=== PATIENT | male | born 1990 | race Caucasian/White ===

== ENCOUNTER 2016-11-20 09:12 | Inpatient (IN) | payer MEDICARE, OTHER ==
[2016-11-20 10:11] VITALS: BMI 24.3
--- NOTE | 2016-11-20 12:48 | HP ---
COWS - Scale Resting Pulse: 0= [place] 80 or Below Sweatin= Chills/Flushing Restless Observation: 3= Extraneous Movement Pupil Size: 0= Normal to Room Light Bone or Joint Aches: 4=Acute Joint/Muscle Pain Runny Nose/ Eye Tearin= Runny Nose/Eyes GI Upset > 30mins: 1= Stomach Cramp Tremor Observation: 1= Tremor [place], Not Seen Yawning Observation: 1= 1-2x During Session Anxiety or Irritability: 2=Irritable/Anxious Goose Flesh Skin: 0=Smooth Skin COWS Score: 15 Admission ROS S - HPI Chief Complaint: DETOX TX FOR HEROIN DEPENDENCE Allergies/Adverse Reactions: Allergies Allergy/AdvReac Type Severity Reaction Status Date / Time No Known Allergies Allergy Verified 11/20/16 11:49 History of Present Illness: 26 Y/O H/M WITH A HX HEROIN DEPENDENCE SEEKING DETOX [place] Exam Limitations: No Limitations - Ebola screening Have you traveled outside of the country in the last 21 days: No Have you had contact with anyone from an Ebola affected area: No Have you been sick,other than usual withdrawal symptoms: No - Review of Systems Constitutional: Chills, Loss of Appetite, Night Sweats, Changes in sleep, Unintentional Wgt. Loss EENT: reports: Nose Congestion, Dental Problems (MISSING TEETH) Respiratory: reports: No Symptoms reported Cardiac: reports: Lightheadedness GI: reports: Poor Appetite, Poor Fluid Intake : reports: No Symptoms Reported Musculoskeletal: reports: Back Pain, Joint Pain, Muscle Pain Integumentary: reports: No Symptoms Reported Neuro: reports: Dizziness Endocrine: reports: No Symptoms Reported Hematology: reports: No Symptoms Reported Psychiatric: reports: Orientated x3, Anxious Other Systems: Reviewed and Negative Patient History - Patient Medical History Hx Anemia: No Hx Asthma: No Hx Chronic Obstructive Pulmonary Disease (COPD): No Hx Cardiac Disorders: No Hx Hypertension: No Hx Hypercholesterolemia: No HX Cerebrovascular Accident: No Hx Seizures: No Hx Diabetes: No Hx Gastrointestinal Disorders: No Hx Genitourinary Disorders: No Hx Sexually Transmitted Disorders: No Hx Renal Disease (ESRD): No Hx Thyroid Disease: No Hx Human Immunodeficiency Virus (HIV): No (NEGATIVE HX) Hx Hepatitis C: No Hx Depression: No Hx Suicide Attempt: No Hx Bipolar Disorder: No Hx Schizophrenia: No - Patient Surgical History Past Surgical History: No Hx Neurologic Surgery: No Hx Cataract Extraction: No Hx Cardiac Surgery: No Hx Lung Surgery: No Hx Breast Surgery: No Hx Breast Biopsy: No Hx Abdominal Surgery: No Hx Appendectomy: No Hx Cholecystectomy: No Hx Genitourinary Surgery: No Hx Orthopedic Surgery: No Anesthesia Reaction: No - PPD History Previous Implant?: No (NEVER TESTED) Implanted On Prior [facility] Admission?: No PPD to be Administered?: Yes - Reproductive History Patient is a Female of Child Bearing Age (11 -55 yrs old): No (MALE) Patient : No (N/A) - Smoking Cessation Smoking history: Current every day smoker Have you smoked in the past 12 months: Yes Aproximately how many cigarettes per day: 10 Hx Chewing Tobacco Use: No Initiated information on smoking cessation: Yes 'Breaking Loose' booklet given: 11/20/16 - Substance & Tx. History Hx Alcohol Use: No (DENIES) Hx Substance Use: Yes (HEROIN) - Substances Abused Heroin Route: Inhalation Frequency: Daily Amount used: 14 bags Age of first use: 8 Date of Last Use: 11/19/16 Family Disease History - Family Disease History Family Disease History: Diabetes: Grandparent Other Family History: FAMILY HX HTN AND DM Admission Physical Exam S - Vital Signs Vital Signs: Vital Signs - 24 hr 11/20/16 10:09 Temperature 98.0 F Pulse Rate 80 Respiratory 18 Rate Blood Pressure 140/80 - Physical General Appearance: Yes: Appropriately Dressed, Moderate Distress, Irritable, Anxious HEENTM: Yes: EOMI, Normocephalic, [place]IL[place], Pharynx Normal, Nasal Congestion, Rhinorrhea Respiratory: Yes: Chest Non-Tender, Lungs Clear, Normal Breath Sounds, No Respiratory Distress Neck: Yes: Supple, Trachea in good position Breast: Yes: Breast Exam Deferred Cardiology: Yes: Regular Rhythm, Regular Rate, S1, S2 Abdominal: Yes: Normal Bowel Sounds, Non Tender, Flat, Soft Genitourinary: Yes: Other (N/A) Back: Yes: Within Normal Limits Musculoskeletal: Yes: full range of Motion, Gait Steady Extremities: Yes: Normal Range of Motion, Non-Tender Neurological: Yes: nutrition services assistant II-XII NML intact, Fully Oriented, Alert Integumentary: Yes: Dry, Warm Lymphatic: Yes: Within Normal Limits - Diagnostic (1) Opioid dependence with withdrawal Current Visit: Yes Status: Acute Cleared for Admission [facility] - Detox or Rehab [facility] Level of Care: Medically Managed Detox Regimen/Protocol: Methadone [facility] Breath Alcohol Content Breath Alcohol Content: 0 Urine Drug Screen - Results Drug Screen Negative: No Urine Drug Screen Results: OPI-Opiates, BZO-Benzodiazepines
[2016-11-20] MEDS ORDERED: ACETAMINOPHEN 325 MG TABLET (FP) PO PRN (14:48)
[2016-11-20] MEDS ORDERED: NICOTINE POLACRILEX 2 MG GUM BC PRN (14:48)
[2016-11-20] MEDS ORDERED: MAGNESIUM HYDROX 2400MG/30ML ORAL SUSPENSION 30 ML CUP PO PRN (14:48)
[2016-11-20] MEDS ORDERED: MENTHOL/PHENOL 1 EACH UD MM PRN (14:48)
[2016-11-20] MEDS ORDERED: guaiFENesin/D-METHORPHAN HB 10 ML UNIT-DOSE CUPS PO PRN (14:48)
[2016-11-20] MEDS ORDERED: MAG HYDROX/AL HYDROX/SIMETH 30 ML UNIT-DOSE CUP PO PRN (14:48)
[2016-11-20] MEDS ORDERED: LOPERAMIDE HCL 2 MG CAPSULE PO PRN (14:48)
[2016-11-20] MEDS ORDERED: MAGNESIUM CITRATE 300 ML BOTTLE PO PRN (14:48)
[2016-11-20] MEDS ORDERED: IBUPROFEN 400 MG TABLET (FP) PO PRN (14:48)
[2016-11-20] MEDS ORDERED: P-EPHED 60MG/TRIPROLIDI 2.5MG TABLET PO PRN (14:48)
[2016-11-20] MEDS ORDERED: METHADONE HCL 10 MG TABLET (FOR DETOX USE ONLY) PO ONE ×2 (15:15→23:00)
[2016-11-20 15:25] LABS: HIV 1 & 2 AB NEGATIVE; HIV 1 AGp24 NEGATIVE
[2016-11-20] MEDS: diazePAM 5 MG TABLET PO PRN (15:33)
[2016-11-20] MEDS: NICOTINE 14 MG/24 HOURS TOPICAL PATCH TD SCH (15:37)
--- NOTE | 2016-11-20 17:19 | EKG ---
Test Reason : Blood Pressure : / mmHG Vent. Rate : 063 BPM Atrial Rate : 063 BPM P-R Int : 168 ms QRS Dur : 082 ms QT Int : 404 ms P-R-T Axes : -03 063 030 degrees QTc Int : 413 ms NORMAL SINUS RHYTHM NORMAL ECG NO PREVIOUS ECGS AVAILABLE Confirmed by JOYCE CHERY MD ([id number]) on 11/20/2016 5:19:07 PM Referred By: Confirmed By:JOYCE CHERY MD
[2016-11-20 20:54] LABS: MCH 30.3 pg (25.7-33.7); MCHC 33.5 g/dl (32.0-35.9); MEAN CELL VOLUME 90.2 fl (80-96); PLATELET COUNT 270 K/MM3 (134-434); RDW 13.2 % (11.9-15.9); WHITE BLOOD COUNT 6.8 K/mm3 (4.0-10.0)
[2016-11-20 21:02] LABS: ALBUMIN 4.5 g/dl (3.4-5.0); ANION GAP 8 (8-16); CALCIUM 9.8 mg/dL (8.5-10.1); CO2 30 mmol/L (21-32); GLUCOSE,RANDOM 111 mg/dL (74-106)
[2016-11-20 21:06] LABS: ALK PHOS 53 U/L (45-117); BILIRUBIN,TOTAL 0.6 mg/dL (0.2-1.0); CREATININE 1.2 mg/dL (0.7-1.3); SGOT/AST 14 U/L (15-37); SGPT/ALT 23 U/L (12-78); TOT PROT 8.1 g/dl (6.4-8.2)
[2016-11-20 21:12] LABS: URINE APPEARANCE CLEAR; URINE BILIRUBIN NEGATIVE (NEGATIVE); URINE BLOOD NEGATIVE (NEGATIVE); URINE COLOR YELLOW; URINE GLUCOSE (UA) NEGATIVE (NEGATIVE); URINE KETONE NEGATIVE (NEGATIVE); URINE LEUK ESTERASE NEGATIVE (NEGATIVE); URINE NITRITE NEGATIVE (NEGATIVE); URINE PROTEIN NEGATIVE (NEGATIVE); URINE UROBILINOGEN NEGATIVE mg/dL (0.2-1.0)
[2016-11-20] MEDS: THIAMINE HCL 100 MG TABLET (FP) PO SCH (22:12)
[2016-11-20] MEDS: diphenhydrAMINE HCL 50 MG CAPSULE PO PRN (22:12)
[2016-11-20 22:22] LABS: SICKLE CELL SCREEN NEGATIVE (NEGATIVE)
[2016-11-21] MEDS ORDERED: METHADONE HCL 10 MG TABLET (FOR DETOX USE ONLY) PO ONE (10:00)
[2016-11-21] MEDS: PRENATAL VITAMINS W/ FOLIC ACID TABLET (FP) PO SCH (10:19)
[2016-11-21] MEDS: NICOTINE 14 MG/24 HOURS TOPICAL PATCH TD SCH (10:20)
--- NOTE | 2016-11-21 10:58 | PN ---
[facility] COWS - Scale Resting Pulse: 0= [place] 80 or Below Sweatin= Chills/Flushing Restless Observation: 3= Extraneous Movement Pupil Size: 2= Moderately Dilated Bone or Joint Aches: 4=Acute Joint/Muscle Pain Runny Nose/ Eye Tearin= Nasal Congestion GI Upset > 30mins: 1= Stomach Cramp Tremor Observation of Outstretched Hands: 1= Tremor [place], Not Seen Yawning Observation: 1= 1-2x During Session Anxiety or Irritability: 1=Feels Anxious/Irritable Goose Flesh Skin: 0=Smooth Skin COWS Score: 15 S Progress Note (SOAP) Subjective: ANXIETY,CHILLS,FATIGUE. Objective: 11/21/16 10:57 Vital Signs Temperature 97.2 F L 11/21/16 09:33 Pulse Rate 55 L 11/21/16 09:33 Respiratory Rate 18 11/21/16 09:33 Blood Pressure 117/73 11/21/16 09:33 O2 Sat by Pulse Oximetry (%) Laboratory Last Values WBC 6.8 K/mm3 (4.0-10.0) 11/20/16 11:00 RBC 5.00 M/mm3 (4.00-5.60) 11/20/16 11:00 Hgb 15.1 GM/dL (11.7-16.9) 11/20/16 11:00 Hct 45.1 % (35.4-49) 11/20/16 11:00 MCV 90.2 fl (80-96) 11/20/16 11:00 MCH 30.3 pg (25.7-33.7) 11/20/16 11:00 MCHC 33.5 g/dl (32.0-35.9) 11/20/16 11:00 RDW 13.2 % (11.9-15.9) 11/20/16 11:00 Plt Count 270 K/MM3 (134-434) 11/20/16 11:00 MPV 9.0 fl (7.5-11.1) 11/20/16 11:00 Sickle Cell Screen Negative (NEGATIVE) 11/20/16 11:00 Sodium 140 mmol/L (136-145) 11/20/16 11:00 Potassium 4.3 mmol/L (3.5-5.1) 11/20/16 11:00 Chloride 102 mmol/L (98-107) 11/20/16 11:00 Carbon Dioxide 30 mmol/L (21-32) 11/20/16 11:00 Anion Gap 8 (8-16) 11/20/16 11:00 BUN 15 mg/dL (7-18) 11/20/16 11:00 Creatinine 1.2 mg/dL (0.7-1.3) 11/20/16 11:00 Creat Clearance w eGFR > 60 (>60) 11/20/16 11:00 Random Glucose 111 mg/dL (74-106) H 11/20/16 11:00 Calcium 9.8 mg/dL (8.5-10.1) 11/20/16 11:00 Total Bilirubin 0.6 mg/dL (0.2-1.0) 11/20/16 11:00 AST 14 U/L (15-37) L 11/20/16 11:00 ALT 23 U/L (12-78) 11/20/16 11:00 Alkaline Phosphatase 53 U/L (45-117) 11/20/16 11:00 Total Protein 8.1 g/dl (6.4-8.2) 11/20/16 11:00 Albumin 4.5 g/dl (3.4-5.0) 11/20/16 11:00 Urine Color Yellow 11/20/16 20:00 Urine Appearance Clear 11/20/16 20:00 Urine pH 5.0 (5.0-8.0) 11/20/16 20:00 Ur Specific [place] 1.025 (1.005-1.025) 11/20/16 20:00 Urine Protein Negative (NEGATIVE) 11/20/16 20:00 Urine Glucose (UA) Negative (NEGATIVE) 11/20/16 20:00 Urine Ketones Negative (NEGATIVE) 11/20/16 20:00 Urine Blood Negative (NEGATIVE) 11/20/16 20:00 Urine Nitrite Negative (NEGATIVE) 11/20/16 20:00 Urine Bilirubin Negative (NEGATIVE) 11/20/16 20:00 Urine Urobilinogen Negative mg/dL (0.2-1.0) 11/20/16 20:00 Ur Leukocyte Esterase Negative (NEGATIVE) 11/20/16 20:00 HIV 1&2 Antibody Screen Negative 11/20/16 11:00 HIV P24 Antigen Negative 11/20/16 11:00 Assessment: 11/21/16 10:57 WITHDRAWAL SX Plan: CONTINUE DETOX
[2016-11-21] MEDS: THIAMINE HCL 100 MG TABLET (FP) PO SCH (22:26)
[2016-11-21] MEDS: diphenhydrAMINE HCL 50 MG CAPSULE PO PRN (22:27)
[2016-11-22] MEDS: diazePAM 5 MG TABLET PO PRN ×5 (06:00→22:27)
[2016-11-22] MEDS ORDERED: METHADONE HCL 5 MG TABLET (FOR DETOX USE ONLY) PO ONE (10:00)
--- NOTE | 2016-11-22 10:10 | PN ---
S COWS - Scale Resting Pulse: 0= [place] 80 or Below Sweatin= Chills/Flushing Restless Observation: 3= Extraneous Movement Pupil Size: 2= Moderately Dilated Bone or Joint Aches: 4=Acute Joint/Muscle Pain Runny Nose/ Eye Tearin= Nasal Congestion GI Upset > 30mins: 1= Stomach Cramp Tremor Observation of Outstretched Hands: 1= Tremor [place], Not Seen Yawning Observation: 1= 1-2x During Session Anxiety or Irritability: 2=Irritable/Anxious Goose Flesh Skin: 0=Smooth Skin COWS Score: 16 S Progress Note (SOAP) Subjective: ANXIETY,SWEATS,CHILLS. Objective: 11/22/16 10:10 Vital Signs Temperature 97.9 F 11/22/16 09:27 Pulse Rate 61 11/22/16 09:27 Respiratory Rate 18 11/22/16 09:27 Blood Pressure 117/70 11/22/16 09:27 O2 Sat by Pulse Oximetry (%) Laboratory Last Values WBC 6.8 K/mm3 (4.0-10.0) 11/20/16 11:00 RBC 5.00 M/mm3 (4.00-5.60) 11/20/16 11:00 Hgb 15.1 GM/dL (11.7-16.9) 11/20/16 11:00 Hct 45.1 % (35.4-49) 11/20/16 11:00 MCV 90.2 fl (80-96) 11/20/16 11:00 MCH 30.3 pg (25.7-33.7) 11/20/16 11:00 MCHC 33.5 g/dl (32.0-35.9) 11/20/16 11:00 RDW 13.2 % (11.9-15.9) 11/20/16 11:00 Plt Count 270 K/MM3 (134-434) 11/20/16 11:00 MPV 9.0 fl (7.5-11.1) 11/20/16 11:00 Sickle Cell Screen Negative (NEGATIVE) 11/20/16 11:00 Sodium 140 mmol/L (136-145) 11/20/16 11:00 Potassium 4.3 mmol/L (3.5-5.1) 11/20/16 11:00 Chloride 102 mmol/L (98-107) 11/20/16 11:00 Carbon Dioxide 30 mmol/L (21-32) 11/20/16 11:00 Anion Gap 8 (8-16) 11/20/16 11:00 BUN 15 mg/dL (7-18) 11/20/16 11:00 Creatinine 1.2 mg/dL (0.7-1.3) 11/20/16 11:00 Creat Clearance w eGFR > 60 (>60) 11/20/16 11:00 Random Glucose 111 mg/dL (74-106) H 11/20/16 11:00 Calcium 9.8 mg/dL (8.5-10.1) 11/20/16 11:00 Total Bilirubin 0.6 mg/dL (0.2-1.0) 11/20/16 11:00 AST 14 U/L (15-37) L 11/20/16 11:00 ALT 23 U/L (12-78) 11/20/16 11:00 Alkaline Phosphatase 53 U/L (45-117) 11/20/16 11:00 Total Protein 8.1 g/dl (6.4-8.2) 11/20/16 11:00 Albumin 4.5 g/dl (3.4-5.0) 11/20/16 11:00 Urine Color Yellow 11/20/16 20:00 Urine Appearance Clear 11/20/16 20:00 Urine pH 5.0 (5.0-8.0) 11/20/16 20:00 Ur Specific [place] 1.025 (1.005-1.025) 11/20/16 20:00 Urine Protein Negative (NEGATIVE) 11/20/16 20:00 Urine Glucose (UA) Negative (NEGATIVE) 11/20/16 20:00 Urine Ketones Negative (NEGATIVE) 11/20/16 20:00 Urine Blood Negative (NEGATIVE) 11/20/16 20:00 Urine Nitrite Negative (NEGATIVE) 11/20/16 20:00 Urine Bilirubin Negative (NEGATIVE) 11/20/16 20:00 Urine Urobilinogen Negative mg/dL (0.2-1.0) 11/20/16 20:00 Ur Leukocyte Esterase Negative (NEGATIVE) 11/20/16 20:00 RPR Titer Nonreactive (NONREACTIVE) 11/20/16 11:00 HIV 1&2 Antibody Screen Negative 11/20/16 11:00 HIV P24 Antigen Negative 11/20/16 11:00 Assessment: 11/22/16 10:10 WITHDRAWAL SX Plan: CONTINUE DETOX
[2016-11-22] MEDS: PRENATAL VITAMINS W/ FOLIC ACID TABLET (FP) PO SCH (10:31)
[2016-11-22] MEDS: NICOTINE 14 MG/24 HOURS TOPICAL PATCH TD SCH (10:32)
[2016-11-22] MEDS: THIAMINE HCL 100 MG TABLET (FP) PO SCH (22:26)
[2016-11-22] MEDS: diphenhydrAMINE HCL 50 MG CAPSULE PO PRN (22:26)
[2016-11-23] MEDS: diphenhydrAMINE HCL 50 MG CAPSULE PO PRN ×2 (00:29→22:15)
[2016-11-23] MEDS: diazePAM 5 MG TABLET PO PRN ×3 (06:09→14:32)
[2016-11-23] MEDS ORDERED: METHADONE HCL 5 MG TABLET (FOR DETOX USE ONLY) PO ONE (10:00)
[2016-11-23] MEDS: PRENATAL VITAMINS W/ FOLIC ACID TABLET (FP) PO SCH (10:26)
[2016-11-23] MEDS: NICOTINE 14 MG/24 HOURS TOPICAL PATCH TD SCH (10:28)
--- NOTE | 2016-11-23 11:20 | PN ---
BHS Progress Note (SOAP) Subjective: ANXIETY,SWEATS,INTERMITTENT SLEEP-BENADRYL 50 MG NOT EFFECTIVE. Objective: 11/23/16 11:19 Vital Signs Temperature 97.5 F L 11/23/16 10:13 Pulse Rate 75 11/23/16 10:13 Respiratory Rate 16 11/23/16 10:13 Blood Pressure 95/62 11/23/16 10:13 O2 Sat by Pulse Oximetry (%) Laboratory Last Values WBC 6.8 K/mm3 (4.0-10.0) 11/20/16 11:00 RBC 5.00 M/mm3 (4.00-5.60) 11/20/16 11:00 Hgb 15.1 GM/dL (11.7-16.9) 11/20/16 11:00 Hct 45.1 % (35.4-49) 11/20/16 11:00 MCV 90.2 fl (80-96) 11/20/16 11:00 MCH 30.3 pg (25.7-33.7) 11/20/16 11:00 MCHC 33.5 g/dl (32.0-35.9) 11/20/16 11:00 RDW 13.2 % (11.9-15.9) 11/20/16 11:00 Plt Count 270 K/MM3 (134-434) 11/20/16 11:00 MPV 9.0 fl (7.5-11.1) 11/20/16 11:00 Sickle Cell Screen Negative (NEGATIVE) 11/20/16 11:00 Sodium 140 mmol/L (136-145) 11/20/16 11:00 Potassium 4.3 mmol/L (3.5-5.1) 11/20/16 11:00 Chloride 102 mmol/L (98-107) 11/20/16 11:00 Carbon Dioxide 30 mmol/L (21-32) 11/20/16 11:00 Anion Gap 8 (8-16) 11/20/16 11:00 BUN 15 mg/dL (7-18) 11/20/16 11:00 Creatinine 1.2 mg/dL (0.7-1.3) 11/20/16 11:00 Creat Clearance w eGFR > 60 (>60) 11/20/16 11:00 Random Glucose 111 mg/dL (74-106) H 11/20/16 11:00 Calcium 9.8 mg/dL (8.5-10.1) 11/20/16 11:00 Total Bilirubin 0.6 mg/dL (0.2-1.0) 11/20/16 11:00 AST 14 U/L (15-37) L 11/20/16 11:00 ALT 23 U/L (12-78) 11/20/16 11:00 Alkaline Phosphatase 53 U/L (45-117) 11/20/16 11:00 Total Protein 8.1 g/dl (6.4-8.2) 11/20/16 11:00 Albumin 4.5 g/dl (3.4-5.0) 11/20/16 11:00 Urine Color Yellow 11/20/16 20:00 Urine Appearance Clear 11/20/16 20:00 Urine pH 5.0 (5.0-8.0) 11/20/16 20:00 Ur Specific [place] 1.025 (1.005-1.025) 11/20/16 20:00 Urine Protein Negative (NEGATIVE) 11/20/16 20:00 Urine Glucose (UA) Negative (NEGATIVE) 11/20/16 20:00 Urine Ketones Negative (NEGATIVE) 11/20/16 20:00 Urine Blood Negative (NEGATIVE) 11/20/16 20:00 Urine Nitrite Negative (NEGATIVE) 11/20/16 20:00 Urine Bilirubin Negative (NEGATIVE) 11/20/16 20:00 Urine Urobilinogen Negative mg/dL (0.2-1.0) 11/20/16 20:00 Ur Leukocyte Esterase Negative (NEGATIVE) 11/20/16 20:00 RPR Titer Nonreactive (NONREACTIVE) 11/20/16 11:00 HIV 1&2 Antibody Screen Negative 11/20/16 11:00 HIV P24 Antigen Negative 11/20/16 11:00 Assessment: 11/23/16 11:20 WITHDRAWAL SX Plan: CONTINUE DETOX
[2016-11-23] MEDS: hydrOXYzine PAMOATE 25 MG CAPSULE (FP) PO PRN ×2 (12:13→17:20)
--- NOTE | 2016-11-23 15:00 | CONSULT ---
[facility] Psychiatric Consult - Data Date of interview: 11/23/16 Admission source: [facility] Identifying data: This is 26 years old male with no psychiatric hospitalization history intoxicated with: Alcohol, Heroin and Nicotine Substance Abuse History: Seroquel 100mg po qhs
--- NOTE | 2016-11-23 15:04 | CONSULT ---
[facility] Psychiatric Consult - Data Date of interview: 11/23/16 Admission source: [facility] Identifying data: This is 26 uyears old male with no psychiatric hospitalization history intoxicatewd with: Heroin, Alcohol and Nicotine Substance Abuse History: - Smoking Cessation. Smoking history: Current every day smoker. Have you smoked in the past 12 months: Yes. Aproximately how many cigarettes per day: 10. Hx Chewing Tobacco Use: No. Initiated information on smoking cessation: Yes. 'Breaking Loose' booklet given: 11/20/16. - Substance & Tx. History. Hx Alcohol Use: No (DENIES). Hx Substance Use: Yes (HEROIN). - Substances Abused. Heroin. Route: Inhalation. Frequency: Daily. Amount used: 14 bags. Age of first use: 8. Date of Last Use: 11/19/16 Medical History: Denies Psychiatric History: Denies, reports insomnia for last 2 days , asking for pharmacological aid. Physical/Sexual Abuse/Trauma History: Denies Additional Comment: Seroquel 100mg po qhs Mental Status Exam - Mental Status Exam Alert and Oriented to: Person Cognitive Function: Fair Patient Appearance: Well Groomed Mood: Apprehensive Affect: Mood Congruent Patient Behavior: Cooperative Speech Pattern: Appropriate Voice Loudness: Normal Thought Process: Goal Oriented Hallucinations: Denies Suicidal Ideation: Denies Homicidal Ideation: Denies Insight/Judgement: Fair Sleep: Difficulty falling asleep Appetite: Fair, Weight loss Muscle strength/Tone: Normal Gait/Station: Normal Additional Comments: Seroquel 100mg po qhs Psychiatric Findings - Problem List ([place] 1, 2,3) (1) Nicotine dependence Current Visit: Yes Status: Acute (2) Drug-induced mood disorder Current Visit: Yes Status: Suspected (3) Opioid-induced sleep disorder, insomnia type, with onset during discontinuation/withdrawal Current Visit: Yes Status: Acute - Initial Treatment Plan Initial Treatment Plan: Seroquel 100mg po qhs
[2016-11-23] MEDS ORDERED: QUEtiapine FUMARATE 100 MG TABLET (FP) PO SCH (22:00)
[2016-11-23] MEDS: THIAMINE HCL 100 MG TABLET (FP) PO SCH (22:15)
[2016-11-24] MEDS: hydrOXYzine PAMOATE 25 MG CAPSULE (FP) PO PRN ×2 (05:34→18:02)
[2016-11-24] MEDS ORDERED: METHADONE HCL 10 MG TABLET (FOR DETOX USE ONLY) PO ONE (10:00)
[2016-11-24] MEDS: NICOTINE 14 MG/24 HOURS TOPICAL PATCH TD SCH (10:20)
[2016-11-24] MEDS: PRENATAL VITAMINS W/ FOLIC ACID TABLET (FP) PO SCH (10:21)
--- NOTE | 2016-11-24 11:45 | PN ---
[facility] Progress Note (SOAP) Subjective: ANXIETY,SWEATS, INTERMITTENT SLEEP. WAS SEEN BY PSYCH CONSULT. Objective: 11/24/16 11:32 Vital Signs Temperature 97.7 F 11/24/16 10:35 Pulse Rate 84 11/24/16 10:35 Respiratory Rate 20 11/24/16 10:35 Blood Pressure 94/63 11/24/16 10:35 O2 Sat by Pulse Oximetry (%) Laboratory Last Values WBC 6.8 K/mm3 (4.0-10.0) 11/20/16 11:00 RBC 5.00 M/mm3 (4.00-5.60) 11/20/16 11:00 Hgb 15.1 GM/dL (11.7-16.9) 11/20/16 11:00 Hct 45.1 % (35.4-49) 11/20/16 11:00 MCV 90.2 fl (80-96) 11/20/16 11:00 MCH 30.3 pg (25.7-33.7) 11/20/16 11:00 MCHC 33.5 g/dl (32.0-35.9) 11/20/16 11:00 RDW 13.2 % (11.9-15.9) 11/20/16 11:00 Plt Count 270 K/MM3 (134-434) 11/20/16 11:00 MPV 9.0 fl (7.5-11.1) 11/20/16 11:00 Sickle Cell Screen Negative (NEGATIVE) 11/20/16 11:00 Sodium 140 mmol/L (136-145) 11/20/16 11:00 Potassium 4.3 mmol/L (3.5-5.1) 11/20/16 11:00 Chloride 102 mmol/L (98-107) 11/20/16 11:00 Carbon Dioxide 30 mmol/L (21-32) 11/20/16 11:00 Anion Gap 8 (8-16) 11/20/16 11:00 BUN 15 mg/dL (7-18) 11/20/16 11:00 Creatinine 1.2 mg/dL (0.7-1.3) 11/20/16 11:00 Creat Clearance w eGFR > 60 (>60) 11/20/16 11:00 Random Glucose 111 mg/dL (74-106) H 11/20/16 11:00 Calcium 9.8 mg/dL (8.5-10.1) 11/20/16 11:00 Total Bilirubin 0.6 mg/dL (0.2-1.0) 11/20/16 11:00 AST 14 U/L (15-37) L 11/20/16 11:00 ALT 23 U/L (12-78) 11/20/16 11:00 Alkaline Phosphatase 53 U/L (45-117) 11/20/16 11:00 Total Protein 8.1 g/dl (6.4-8.2) 11/20/16 11:00 Albumin 4.5 g/dl (3.4-5.0) 11/20/16 11:00 Urine Color Yellow 11/20/16 20:00 Urine Appearance Clear 11/20/16 20:00 Urine pH 5.0 (5.0-8.0) 11/20/16 20:00 Ur Specific [place] 1.025 (1.005-1.025) 11/20/16 20:00 Urine Protein Negative (NEGATIVE) 11/20/16 20:00 Urine Glucose (UA) Negative (NEGATIVE) 11/20/16 20:00 Urine Ketones Negative (NEGATIVE) 11/20/16 20:00 Urine Blood Negative (NEGATIVE) 11/20/16 20:00 Urine Nitrite Negative (NEGATIVE) 11/20/16 20:00 Urine Bilirubin Negative (NEGATIVE) 11/20/16 20:00 Urine Urobilinogen Negative mg/dL (0.2-1.0) 11/20/16 20:00 Ur Leukocyte Esterase Negative (NEGATIVE) 11/20/16 20:00 RPR Titer Nonreactive (NONREACTIVE) 11/20/16 11:00 HIV 1&2 Antibody Screen Negative 11/20/16 11:00 HIV P24 Antigen Negative 11/20/16 11:00 Assessment: 11/24/16 11:33 WITHDRAWAL SX Plan: CONTINUE DETOX PT ON SEROQUEL 100 MG PO HS
[2016-11-24] MEDS ORDERED: QUEtiapine FUMARATE 100 MG TABLET (FP) PO SCH (20:24)
[2016-11-24] MEDS ORDERED: QUEtiapine FUMARATE 50 MG TABLET PO SCH (22:00)
[2016-11-24] MEDS: diphenhydrAMINE HCL 50 MG CAPSULE PO PRN (22:23)
[2016-11-24] MEDS: THIAMINE HCL 100 MG TABLET (FP) PO SCH (22:23)
[2016-11-25] MEDS ORDERED: METHADONE HCL 5 MG TABLET (FOR DETOX USE ONLY) PO ONE (06:00)
[2016-11-25 09:49] VITALS: BP 106/69; PULSE 79; TEMP 96.4
[2016-11-25] MEDS: PRENATAL VITAMINS W/ FOLIC ACID TABLET (FP) PO SCH (10:12)
[2016-11-25] MEDS: NICOTINE 14 MG/24 HOURS TOPICAL PATCH TD SCH (10:13)
--- NOTE | 2016-11-26 15:21 | DS ---
[facility] Detox Discharge Summary Admission Date: 11/20/16 Discharge Date: 11/25/16 - History Present History: Opioid Dependence Additional Comments: PATIENT GOING TO [facility] FOR AFTERCARE. PATIENT ADVISED TO FOLLOW-UP THERE PER DISCHARGE ARRANGEMENT. PATIENT DISCHARGED FROM DETOX UNIT IN STABLE MEDICAL CONDITION. - Physical Exam Results Vital Signs: Vital Signs Temperature 96.4 F L 11/25/16 09:48 Pulse Rate 79 11/25/16 09:48 Respiratory Rate 18 11/25/16 09:48 Blood Pressure 106/69 11/25/16 09:48 O2 Sat by Pulse Oximetry (%) Pertinent Admission Physical Exam Findings: WITHDRAWAL SYMPTOMS. Laboratory Tests 11/20/16 11/20/16 11/20/16 11:00 11:00 11:00 WBC 6.8 RBC 5.00 Hgb 15.1 Hct 45.1 MCV 90.2 MCH 30.3 MCHC 33.5 RDW 13.2 Plt Count 270 MPV 9.0 Sickle Cell Screen Negative Sodium 140 Potassium 4.3 Chloride 102 Carbon Dioxide 30 Anion Gap 8 BUN 15 Creatinine 1.2 Creat Clearance w eGFR > 60 Random Glucose 111 H Calcium 9.8 Total Bilirubin 0.6 AST 14 L ALT 23 Alkaline Phosphatase 53 Total Protein 8.1 Albumin 4.5 Urine Color Urine Appearance Urine pH Ur Specific [place] Urine Protein Urine Glucose (UA) Urine Ketones Urine Blood Urine Nitrite Urine Bilirubin Urine Urobilinogen Ur Leukocyte Esterase RPR Titer HIV 1&2 Antibody Screen Negative HIV P24 Antigen Negative 11/20/16 11/20/16 11:00 20:00 WBC RBC Hgb Hct MCV MCH MCHC RDW Plt Count MPV Sickle Cell Screen Sodium Potassium Chloride Carbon Dioxide Anion Gap BUN Creatinine Creat Clearance w eGFR Random Glucose Calcium Total Bilirubin AST ALT Alkaline Phosphatase Total Protein Albumin Urine Color Yellow Urine Appearance Clear Urine pH 5.0 Ur Specific [place] 1.025 Urine Protein Negative Urine Glucose (UA) Negative Urine Ketones Negative Urine Blood Negative Urine Nitrite Negative Urine Bilirubin Negative Urine Urobilinogen Negative Ur Leukocyte Esterase Negative RPR Titer Nonreactive HIV 1&2 Antibody Screen HIV P24 Antigen LABS NOTED. - Treatment Hospital Course: Detox Protocol Followed, Detoxed Safely, Responded well, Discharged Condition Good, Rehab Referral Accepted Patient has Accepted a Rehab Referral to: [facility]. - Medication Discharge Medications: Ambulatory Orders Quetiapine Fumarate [Seroquel] 100 mg PO HS #30 tablet 11/23/16 - Diagnosis (1) Opioid dependence with withdrawal Status: Acute (2) Nicotine dependence Status: Chronic Qualifiers: Nicotine product type: cigarettes Substance use status: in withdrawal Qualified Code(s): F17.213 - Nicotine dependence, cigarettes, with withdrawal (3) Opioid-induced sleep disorder, insomnia type, with onset during discontinuation/withdrawal Status: Acute (4) Drug-induced mood disorder Status: Suspected - AMA Did Patient Leave Against Medical Advice: No
== END 2016-11-25 10:17 | disposition home or self-care (01) | DRG 773 ==
LOC: YASAS 09:12 → Y3N 13:27
PROVIDERS: ADMIT Internal Medicine; ATTEND Internal Medicine
PROC: HZ2ZZZZ Detoxification Services for Substance Abuse Treatment (ICD-10-PCS; principal; 2016-11-25)
DX: F11.23 Opioid dependence with withdrawal (principal); F17.210 Nicotine dependence, cigarettes, uncomplicated; F19.24 Other psychoactive substance dependence with psychoactive substance-induced mood disorder; F19.282 Other psychoactive substance dependence with psychoactive substance-induced sleep disorder; G47.00 Insomnia, unspecified
CPT/HCPCS: 36415; 80053; 81003; 85027; 85660; 86593; 87389; 93005; 93010

== ENCOUNTER 2016-12-21 09:54 | Inpatient (IN) | payer OTHER ==
[2016-12-21 12:59] VITALS: BMI 25.8
--- NOTE | 2016-12-21 15:18 | HP ---
COWS - Scale Resting Pulse: 0= [place] 80 or Below Sweatin=Flushed/Facial Moisture Restless Observation: 1= Difficult to Sit Still Pupil Size: 0= Normal to Room Light Bone or Joint Aches: 2= Severe Diffuse Aches Runny Nose/ Eye Tearin= Runny Nose/Eyes GI Upset > 30mins: 2= Nausea/Diarrhea Tremor Observation: 2= Slight Tremor Visible Yawning Observation: 2= >3x During Session Anxiety or Irritability: 2=Irritable/Anxious Goose Flesh Skin: 3=Piloerection COWS Score: 18 CIWA Score - CIWA Score Nausea/Vomitin-Mild Nausea/No Vomiting Muscle Tremors: 4-Moderate,w/Arms Extend Anxiety: 3 Agitation: 4-Moderately Restless Paroxysmal Sweats: 3 Orientation: 0-Oriented Tacttile Disturbances: 0-None Auditory Disturbances: 0-None Visual Disturbances: 0-None Headache: 0-None Present CIWA-Ar Total Score: 15 Admission ROS BHS - HPI Chief Complaint: I only stayed sober for 2 days only. The rehab facility I was sent to go after detox was not a place for me. There was too many drugs there which became tempting which led for me to relapse. I want to go to a different rehab where I feel safe and try to stay clean and sober. Allergies/Adverse Reactions: Allergies Allergy/AdvReac Type Severity Reaction Status Date / Time No Known Allergies Allergy Verified 12/21/16 14:56 History of Present Illness: Pt is a 26yr old male with a history of alcohol and heroin dependence seeking detox for treatment. Exam Limitations: No Limitations - Ebola screening Have you traveled outside of the country in the last 21 days: No Have you had contact with anyone from an Ebola affected area: No Have you been sick,other than usual withdrawal symptoms: No Do you have a fever: No - Review of Systems Constitutional: Chills, Diaphoresis, Loss of Appetite, Changes in sleep EENT: reports: Tearing, Nose Congestion Respiratory: reports: No Symptoms reported Cardiac: reports: No Symptoms Reported GI: reports: Poor Appetite, Poor Fluid Intake : reports: No Symptoms Reported Musculoskeletal: reports: Back Pain, Joint Pain Integumentary: reports: Flushing, Sweating Neuro: reports: Headache, Tingling, Tremors Endocrine: reports: Excessive Sweating, Flushing, Intolerance to Cold, Intolerance to Heat Hematology: reports: No Symptoms Reported Psychiatric: reports: No Sypmtoms Reported, Judgement Intact, Mood/Affect Appropiate, Orientated x3, Agitated, Anxious Other Systems: Reviewed and Negative Patient History - Patient Medical History Hx Anemia: No Hx Asthma: No Hx Chronic Obstructive Pulmonary Disease (COPD): No Hx Cancer: No Hx Cardiac Disorders: No Hx Congestive Heart Failure: No Hx Hypertension: No Hx Hypercholesterolemia: No Hx Pacemaker: No HX Cerebrovascular Accident: No Hx Seizures: No Hx Diabetes: No Hx Gastrointestinal Disorders: No Hx Liver Disease: No Hx Genitourinary Disorders: No Hx Sexually Transmitted Disorders: No Hx Renal Disease (ESRD): No Hx Thyroid Disease: No Hx Human Immunodeficiency Virus (HIV): No (NEGATIVE HX) Hx Hepatitis C: No Hx Depression: Yes Hx Suicide Attempt: No Hx Bipolar Disorder: No Hx Schizophrenia: No Other Medical History: anxiety/insomnia - Patient Surgical History Past Surgical History: No Hx Neurologic Surgery: No Hx Cataract Extraction: No Hx Cardiac Surgery: No Hx Lung Surgery: No Hx Breast Surgery: No Hx Breast Biopsy: No Hx Abdominal Surgery: No Hx Appendectomy: No Hx Cholecystectomy: No Hx Genitourinary Surgery: No Hx Section: No Hx Orthopedic Surgery: No Anesthesia Reaction: No - PPD History Previous Implant?: Yes Documented Results: Negative w/proof Date: 11/22/16 PPD to be Administered?: No - Reproductive History Patient is a Female of Child Bearing Age (11 -55 yrs old): No - Smoking Cessation Smoking history: Current every day smoker Have you smoked in the past 12 months: Yes Aproximately how many cigarettes per day: 10 Hx Chewing Tobacco Use: No Initiated information on smoking cessation: Yes 'Breaking Loose' booklet given: 12/21/16 - Substance & Tx. History Hx Alcohol Use: Yes Hx Substance Use: Yes Substance Use Type: Alcohol, Heroin Family Disease History - Family Disease History Family Disease History: Diabetes: Grandparent Admission Physical Exam BHS - Vital Signs Vital Signs: Vital Signs - 24 hr 12/21/16 12:56 Temperature 99.4 F Pulse Rate 72 Respiratory 20 Rate Blood Pressure 115/68 - Physical General Appearance: Yes: Appropriately Dressed, Moderate Distress, Tremorous, Irritable, Sweating, Anxious HEENTM: Yes: Normal Voice, Nasal Congestion, Rhinorrhea Respiratory: Yes: Chest Non-Tender, Lungs Clear, Normal Breath Sounds Neck: Yes: No masses,lesions,Nodules Breast: Yes: Within Normal Limits Cardiology: Yes: Regular Rhythm, Regular Rate, S1, S2 Abdominal: Yes: Normal Bowel Sounds, Non Tender Genitourinary: Yes: Within Normal Limits Back: Yes: Normal Inspection Musculoskeletal: Yes: full range of Motion Extremities: Yes: Normal Capillary Refill, Normal Inspection, Non-Tender, Tremors Neurological: Yes: Fully Oriented, Alert, Normal Response Integumentary: Yes: Normal Color, Diaphoresis Lymphatic: Yes: Within Normal Limits - Diagnostic (1) Opioid dependence with withdrawal Current Visit: Yes Status: Chronic (2) Nicotine dependence Current Visit: Yes Status: Chronic Qualifiers: Nicotine product type: cigarettes Substance use status: uncomplicated Qualified Code(s): F17.210 - Nicotine dependence, cigarettes, uncomplicated (3) Insomnia Current Visit: Yes Status: Chronic Qualifiers: Insomnia type: unspecified Qualified Code(s): G47.00 - Insomnia, unspecified Cleared for Admission [facility] - Detox or Rehab [facility] Level of Care: Medically Managed Detox Regimen/Protocol: Methadone/Librium [facility] Breath Alcohol Content Breath Alcohol Content: 0 Urine Drug Screen - Results Drug Screen Negative: No Urine Drug Screen Results: EVA-Cocaine, OPI-Opiates, BZO-Benzodiazepines
[2016-12-21] MEDS ORDERED: diphenhydrAMINE HCL 50 MG CAPSULE PO PRN (15:26)
[2016-12-21] MEDS ORDERED: MAGNESIUM CITRATE 300 ML BOTTLE PO PRN (15:26)
[2016-12-21] MEDS ORDERED: LOPERAMIDE HCL 2 MG CAPSULE PO PRN (15:26)
[2016-12-21] MEDS ORDERED: IBUPROFEN 400 MG TABLET (FP) PO PRN (15:26)
[2016-12-21] MEDS ORDERED: ACETAMINOPHEN 325 MG TABLET (FP) PO PRN (15:26)
[2016-12-21] MEDS ORDERED: MENTHOL/PHENOL 1 EACH UD MM PRN (15:26)
[2016-12-21] MEDS ORDERED: MAGNESIUM HYDROX 2400MG/30ML ORAL SUSPENSION 30 ML CUP PO PRN (15:26)
[2016-12-21] MEDS ORDERED: P-EPHED 60MG/TRIPROLIDI 2.5MG TABLET PO PRN (15:26)
[2016-12-21] MEDS ORDERED: MAG HYDROX/AL HYDROX/SIMETH 30 ML UNIT-DOSE CUP PO PRN (15:26)
[2016-12-21] MEDS ORDERED: guaiFENesin/D-METHORPHAN HB 10 ML UNIT-DOSE CUPS PO PRN (15:26)
[2016-12-21] MEDS ORDERED: chlordiazePOXIDE HCL 25 MG CAPSULE PO ONE (16:55)
[2016-12-21] MEDS ORDERED: METHADONE HCL 10 MG TABLET (FOR DETOX USE ONLY) PO ONE ×2 (17:15→23:00)
[2016-12-21] MEDS: chlordiazePOXIDE HCL 25 MG CAPSULE PO SCH ×2 (17:47→22:12)
[2016-12-21] MEDS: NICOTINE POLACRILEX 4 MG GUM BC PRN (19:32)
[2016-12-21] MEDS: THIAMINE HCL 100 MG TABLET (FP) PO SCH (22:12)
[2016-12-21] MEDS: LIDOCAINE PATCH REMOVAL MC SCH (22:39)
[2016-12-21 23:40] LABS: URINE APPEARANCE CLEAR; URINE BILIRUBIN NEGATIVE (NEGATIVE); URINE BLOOD NEGATIVE (NEGATIVE); URINE COLOR YELLOW; URINE GLUCOSE (UA) NEGATIVE (NEGATIVE); URINE KETONE 1+ (NEGATIVE); URINE LEUK ESTERASE NEGATIVE (NEGATIVE); URINE NITRITE NEGATIVE (NEGATIVE); URINE PROTEIN NEGATIVE (NEGATIVE)
[2016-12-22] MEDS: chlordiazePOXIDE HCL 25 MG CAPSULE PO SCH ×4 (05:28→22:32)
[2016-12-22] MEDS ORDERED: METHADONE HCL 10 MG TABLET (FOR DETOX USE ONLY) PO SCH (10:00)
--- NOTE | 2016-12-22 10:21 | PN ---
S COWS - Scale Resting Pulse: 0= [place] 80 or Below Sweatin= Chills/Flushing Restless Observation: 3= Extraneous Movement Pupil Size: 1= Pupils >than Normal Bone or Joint Aches: 2= Severe Diffuse Aches Runny Nose/ Eye Tearin= Runny Nose/Eyes GI Upset > 30mins: 3= Vomiting/Diarrhea Tremor Observation of Outstretched Hands: 1= Tremor [place], Not Seen Yawning Observation: 1= 1-2x During Session Anxiety or Irritability: 2=Irritable/Anxious Goose Flesh Skin: 0=Smooth Skin COWS Score: 16 S Progress Note (SOAP) Subjective: alert,irritable,anxious,interrupted sleep,pain in body,joint and back,tremor Objective: 12/22/16 10:19 Vital Signs Temperature 98.2 F 12/22/16 09:50 Pulse Rate 62 12/22/16 09:50 Respiratory Rate 18 12/22/16 09:50 Blood Pressure 114/69 12/22/16 09:50 O2 Sat by Pulse Oximetry (%) ekg nsr,normal ecg Laboratory Last Values Urine Color Yellow 12/21/16 22:00 Urine Appearance Clear 12/21/16 22:00 Urine pH 7.0 (5.0-8.0) D 12/21/16 22:00 Ur Specific [place] 1.020 (1.005-1.025) 12/21/16 22:00 Urine Protein Negative (NEGATIVE) 12/21/16 22:00 Urine Glucose (UA) Negative (NEGATIVE) 12/21/16 22:00 Urine Ketones 1+ (NEGATIVE) H 12/21/16 22:00 Urine Blood Negative (NEGATIVE) 12/21/16 22:00 Urine Nitrite Negative (NEGATIVE) 12/21/16 22:00 Urine Bilirubin Negative (NEGATIVE) 12/21/16 22:00 Urine Urobilinogen 2.0 mg/dL (0.2-1.0) 12/21/16 22:00 labs pending Assessment: 12/22/16 10:20 withdrawal symptom Plan: continue detox
[2016-12-22 10:26] LABS: MCH 29.9 pg (25.7-33.7); MCHC 34.8 g/dl (32.0-35.9); MEAN PLT VOLUME 8.7 fl (7.5-11.1); PLATELET COUNT 270 K/MM3 (134-434); RDW 12.7 % (11.9-15.9)
[2016-12-22] MEDS: LIDOCAINE 5% TOPICAL PATCH TP SCH (10:38)
[2016-12-22] MEDS: PRENATAL VITAMINS W/ FOLIC ACID TABLET (FP) PO SCH (10:38)
[2016-12-22] MEDS: NICOTINE 21 MG/24 HOURS TOPICAL PATCH TD SCH (10:39)
[2016-12-22 11:23] LABS: ALBUMIN 4.7 g/dl (3.4-5.0); ALK PHOS 52 U/L (45-117); ANION GAP 12 (8-16); BILIRUBIN,TOTAL 0.9 mg/dL (0.2-1.0); CALCIUM 9.8 mg/dL (8.5-10.1); CO2 23 mmol/L (21-32); CREATININE 1.1 mg/dL (0.7-1.3); GLUCOSE,RANDOM 118 mg/dL (74-106); SGOT/AST 28 U/L (15-37); SGPT/ALT 76 U/L (12-78); TOT PROT 8.4 g/dl (6.4-8.2)
--- NOTE | 2016-12-22 11:29 | CONSULT ---
[facility] Psychiatric Consult - Data Date of interview: 12/22/16 Identifying data: The patient is a 26 year old single male, father of 2 (7 AND 5), he is domciled, residing in [facility] with his grandmother. Substance Abuse History: Started heroin at age of 13, uses 10 bags, daily alcohol use, states he sober the most 2 days. Medical History: Good physical health, smokes cigarettes 10 a day. Psychiatric History: Patient reports no history of psychiatric hospitalizations , however has been feeling very anxious and having insomnia, on his previous [facility] detox.(11/16) admission seen by and continued Seroquel 100 mg ( patient reports was on and off) po hs, with good response. Physical/Sexual Abuse/Trauma History: Denies Mental Status Exam - Mental Status Exam Alert and Oriented to: Time, Place, Person Cognitive Function: Good Patient Appearance: Well Groomed Mood: Sad, Anxious Affect: Appropriate, Mood Congruent Patient Behavior: Appropriate, Cooperative Speech Pattern: Clear, Appropriate Voice Loudness: Normal Thought Process: Goal Oriented Thought Disorder: Not Present Hallucinations: Denies Suicidal Ideation: Denies Homicidal Ideation: Denies Insight/Judgement: Fair Sleep: Poorly, Difficulty falling asleep Appetite: Fair Muscle strength/Tone: Normal Gait/Station: Normal Psychiatric Findings - Problem List ([place] 1, 2,3) (1) Insomnia Current Visit: Yes Status: Chronic Qualifiers: Insomnia type: unspecified Qualified Code(s): G47.00 - Insomnia, unspecified (2) Nicotine dependence Current Visit: Yes Status: Chronic Qualifiers: Nicotine product type: cigarettes Substance use status: uncomplicated Qualified Code(s): F17.210 - Nicotine dependence, cigarettes, uncomplicated (3) Drug-induced mood disorder Current Visit: No Status: Suspected - Initial Treatment Plan Initial Treatment Plan: will continue Seroquel 100 mg po hs.
[2016-12-22] MEDS: chlordiazePOXIDE HCL 25 MG CAPSULE PO PRN (13:34)
[2016-12-22] MEDS: hydrOXYzine PAMOATE 50 MG CAPSULE (FP) PO PRN (13:34)
[2016-12-22] MEDS: CYCLOBENZAPRINE HCL 10 MG TABLET (FP) PO PRN (13:34)
[2016-12-22] MEDS: NICOTINE POLACRILEX 4 MG GUM BC PRN ×2 (13:35→17:46)
[2016-12-22] MEDS: THIAMINE HCL 100 MG TABLET (FP) PO SCH (22:32)
[2016-12-22] MEDS: cloNIDine HCL 0.1 MG TABLET PO SCH (22:32)
[2016-12-22] MEDS: QUEtiapine FUMARATE 100 MG TABLET (FP) PO SCH (22:32)
[2016-12-22] MEDS: LIDOCAINE PATCH REMOVAL MC SCH (22:33)
[2016-12-23] MEDS: chlordiazePOXIDE HCL 25 MG CAPSULE PO SCH ×2 (05:23→10:24)
--- NOTE | 2016-12-23 09:51 | EKG ---
Test Reason : Blood Pressure : / mmHG Vent. Rate : 062 BPM Atrial Rate : 062 BPM P-R Int : 162 ms QRS Dur : 094 ms QT Int : 392 ms P-R-T Axes : -01 070 048 degrees QTc Int : 397 ms NORMAL SINUS RHYTHM NORMAL ECG WHEN COMPARED WITH ECG OF 20-NOV-2016 13:45, NO SIGNIFICANT CHANGE WAS FOUND Confirmed by MD FABIAN, LORENA ([id number]) on 12/23/2016 9:50:59 AM Referred By: Confirmed By:LORENA PERALTA MD
[2016-12-23] MEDS: METHADONE HCL 5 MG TABLET (FOR DETOX USE ONLY) PO SCH (10:24)
[2016-12-23] MEDS: PRENATAL VITAMINS W/ FOLIC ACID TABLET (FP) PO SCH (10:24)
[2016-12-23] MEDS: cloNIDine HCL 0.1 MG TABLET PO SCH ×2 (10:24→22:28)
[2016-12-23] MEDS: NICOTINE 21 MG/24 HOURS TOPICAL PATCH TD SCH (10:25)
[2016-12-23] MEDS: LIDOCAINE 5% TOPICAL PATCH TP SCH (10:25)
--- NOTE | 2016-12-23 12:44 | PN ---
S COWS - Scale Resting Pulse: 0= [place] 80 or Below Sweatin= Chills/Flushing Restless Observation: 3= Extraneous Movement Pupil Size: 1= Pupils >than Normal Bone or Joint Aches: 2= Severe Diffuse Aches Runny Nose/ Eye Tearin= Runny Nose/Eyes GI Upset > 30mins: 2= Nausea/Diarrhea Tremor Observation of Outstretched Hands: 2= Slight Tremor Visible Yawning Observation: 1= 1-2x During Session Anxiety or Irritability: 2=Irritable/Anxious Goose Flesh Skin: 0=Smooth Skin COWS Score: 16 S Progress Note (SOAP) Subjective: alert,irritable,anxious,interrupted sleep,tremor,pain in the body and back Objective: 12/23/16 12:42 Vital Signs Temperature 97.3 F L 12/23/16 10:58 Pulse Rate 61 12/23/16 10:58 Respiratory Rate 19 12/23/16 10:58 Blood Pressure 108/56 12/23/16 10:58 O2 Sat by Pulse Oximetry (%) Laboratory Last Values WBC 8.0 K/mm3 (4.0-10.0) 12/22/16 06:11 RBC 4.75 M/mm3 (4.00-5.60) 12/22/16 06:11 Hgb 14.2 GM/dL (11.7-16.9) 12/22/16 06:11 Hct 40.8 % (35.4-49) 12/22/16 06:11 MCV 86.0 fl (80-96) 12/22/16 06:11 MCH 29.9 pg (25.7-33.7) 12/22/16 06:11 MCHC 34.8 g/dl (32.0-35.9) 12/22/16 06:11 RDW 12.7 % (11.9-15.9) 12/22/16 06:11 Plt Count 270 K/MM3 (134-434) 12/22/16 06:11 MPV 8.7 fl (7.5-11.1) 12/22/16 06:11 Sodium 139 mmol/L (136-145) 12/22/16 06:11 Potassium 3.7 mmol/L (3.5-5.1) 12/22/16 06:11 Chloride 104 mmol/L (98-107) 12/22/16 06:11 Carbon Dioxide 23 mmol/L (21-32) D 12/22/16 06:11 Anion Gap 12 (8-16) 12/22/16 06:11 BUN 12 mg/dL (7-18) 12/22/16 06:11 Creatinine 1.1 mg/dL (0.7-1.3) 12/22/16 06:11 Creat Clearance w eGFR > 60 (>60) 12/22/16 06:11 Random Glucose 118 mg/dL (74-106) H 12/22/16 06:11 Calcium 9.8 mg/dL (8.5-10.1) 12/22/16 06:11 Total Bilirubin 0.9 mg/dL (0.2-1.0) D 12/22/16 06:11 AST 28 U/L (15-37) D 12/22/16 06:11 ALT 76 U/L (12-78) D 12/22/16 06:11 Alkaline Phosphatase 52 U/L (45-117) 12/22/16 06:11 Total Protein 8.4 g/dl (6.4-8.2) H 12/22/16 06:11 Albumin 4.7 g/dl (3.4-5.0) 12/22/16 06:11 Urine Color Yellow 12/21/16 22:00 Urine Appearance Clear 12/21/16 22:00 Urine pH 7.0 (5.0-8.0) D 12/21/16 22:00 Ur Specific [place] 1.020 (1.005-1.025) 12/21/16 22:00 Urine Protein Negative (NEGATIVE) 12/21/16 22:00 Urine Glucose (UA) Negative (NEGATIVE) 12/21/16 22:00 Urine Ketones 1+ (NEGATIVE) H 12/21/16 22:00 Urine Blood Negative (NEGATIVE) 12/21/16 22:00 Urine Nitrite Negative (NEGATIVE) 12/21/16 22:00 Urine Bilirubin Negative (NEGATIVE) 12/21/16 22:00 Urine Urobilinogen 2.0 mg/dL (0.2-1.0) 12/21/16 22:00 RPR Titer Nonreactive (NONREACTIVE) 12/22/16 06:11 Assessment: 12/23/16 12:44 withdrawal symptom Plan: continue detox,glucose 118,fasting glucose in 1m
[2016-12-23] MEDS: chlordiazePOXIDE HCL 25 MG CAPSULE PO PRN (14:05)
[2016-12-23] MEDS: CYCLOBENZAPRINE HCL 10 MG TABLET (FP) PO PRN (14:05)
[2016-12-23] MEDS: chlordiazePOXIDE 5 MG CAPSULE PO SCH ×2 (17:28→22:28)
[2016-12-23] MEDS: NICOTINE POLACRILEX 4 MG GUM BC PRN (17:34)
[2016-12-23] MEDS: QUEtiapine FUMARATE 100 MG TABLET (FP) PO SCH (22:28)
[2016-12-23] MEDS: THIAMINE HCL 100 MG TABLET (FP) PO SCH (22:28)
[2016-12-23] MEDS: LIDOCAINE PATCH REMOVAL MC SCH (22:29)
[2016-12-24] MEDS: chlordiazePOXIDE 5 MG CAPSULE PO SCH ×2 (06:05→10:33)
--- NOTE | 2016-12-24 09:23 | PN ---
BHS Progress Note (SOAP) Subjective: ALERT,IRRITABLE,ANXIOUS,INTERRUPTED SLEEP,TREMOR,PAIN IN THE BODY AND BACK Objective: 12/24/16 09:22 Vital Signs Temperature 96.3 F L 12/24/16 06:00 Pulse Rate 64 12/24/16 06:00 Respiratory Rate 18 12/24/16 06:00 Blood Pressure 120/56 12/24/16 06:00 O2 Sat by Pulse Oximetry (%) Assessment: 12/24/16 09:22 WITHDRAWAL SYMPTOM Plan: CONTINUE DETOX
[2016-12-24] MEDS: METHADONE HCL 5 MG TABLET (FOR DETOX USE ONLY) PO SCH (10:33)
[2016-12-24] MEDS: cloNIDine HCL 0.1 MG TABLET PO SCH ×2 (10:33→22:27)
[2016-12-24] MEDS: PRENATAL VITAMINS W/ FOLIC ACID TABLET (FP) PO SCH (10:33)
[2016-12-24] MEDS: NICOTINE 21 MG/24 HOURS TOPICAL PATCH TD SCH (10:34)
[2016-12-24] MEDS: LIDOCAINE 5% TOPICAL PATCH TP SCH (10:34)
[2016-12-24] MEDS: NICOTINE POLACRILEX 4 MG GUM BC PRN ×3 (13:09→23:25)
[2016-12-24] MEDS: chlordiazePOXIDE HCL 10 MG CAPSULE PO SCH ×2 (17:30→22:27)
[2016-12-24] MEDS: QUEtiapine FUMARATE 100 MG TABLET (FP) PO SCH (22:26)
[2016-12-24] MEDS: THIAMINE HCL 100 MG TABLET (FP) PO SCH (22:26)
[2016-12-24] MEDS: LIDOCAINE PATCH REMOVAL MC SCH (23:16)
[2016-12-25] MEDS: hydrOXYzine PAMOATE 50 MG CAPSULE (FP) PO PRN (01:02)
[2016-12-25] MEDS: chlordiazePOXIDE HCL 10 MG CAPSULE PO SCH ×2 (06:53→10:31)
[2016-12-25] MEDS ORDERED: chlordiazePOXIDE 5 MG CAPSULE ONE (09:33)
[2016-12-25] MEDS ORDERED: METHADONE HCL 10 MG TABLET (FOR DETOX USE ONLY) PO SCH (10:00)
--- NOTE | 2016-12-25 10:16 | PN ---
BHS Progress Note (SOAP) Subjective: ALERT,IRRITABLE,ANXIOUS,INTERRUPTED SLEEP Objective: 12/25/16 10:16 Vital Signs Temperature 95.4 F L 12/25/16 10:00 Pulse Rate 74 12/25/16 10:00 Respiratory Rate 20 12/25/16 10:00 Blood Pressure 121/60 12/25/16 10:00 O2 Sat by Pulse Oximetry (%) FASTING GLUCOSE IS 148 12/25/16 10:17 Assessment: 12/25/16 10:17 WITHDRAWAL SYMPTOM Plan: CONTINUE DETOX,BGM BID
[2016-12-25] MEDS: NICOTINE 21 MG/24 HOURS TOPICAL PATCH TD SCH (10:27)
[2016-12-25] MEDS: PRENATAL VITAMINS W/ FOLIC ACID TABLET (FP) PO SCH (10:27)
[2016-12-25] MEDS: cloNIDine HCL 0.1 MG TABLET PO SCH ×2 (10:27→22:26)
[2016-12-25] MEDS: LIDOCAINE 5% TOPICAL PATCH TP SCH (10:28)
[2016-12-25] MEDS ORDERED: PANTOPRAZOLE 40 MG TABLET (FP) PO ONE (10:53)
--- NOTE | 2016-12-25 11:49 | PN ---
Psychiatric Progress Note Vital Signs: Vital Signs Period Temp Pulse Resp BP Sys/Atkinson Pulse Ox Last 24 Hr 95.4 F-98.2 F 64-88 16-20 88-136/50-85 Date of Session: 12/25/16 Chief Complaint:: insomnia HPI: Patient reports not sleeping well for last night, repots good response to Remeron 15mg po qhs in the past Current Medications: Active Medications Generic Name Dose Route Start Last Admin Trade Name Freq PRN Reason Stop Dose Admin Acetaminophen 650 mg 12/21/16 15:26 Tylenol - PO Q4H PRN FEVER OR PAIN Al Hydroxide/Mg Hydroxide 30 ml 12/21/16 15:26 12/24/16 12:49 Mylanta Oral Suspension - PO 30 ml Q6H PRN Administration DYSPEPSIA Clonidine 0.1 mg 12/22/16 22:00 12/25/16 10:27 Catapres - PO 0.1 mg BID BON Administration Cyclobenzaprine HCl 10 mg 12/22/16 10:22 12/23/16 14:05 Flexeril - PO 10 mg TID PRN Administration MUSCLE SPASMS Diphenhydramine HCl 50 mg 12/21/16 15:26 12/21/16 22:15 Benadryl - PO 50 mg HSMR1 PRN Administration INSOMNIA Eucalyptus/Menthol/Phenol/Sorbitol 1 each 12/21/16 15:26 Cepastat Lozenge - MM Q4H PRN SORE THROAT Guaifenesin 10 ml 12/21/16 15:26 Robitussin Dm - PO Q6H PRN COUGH Hydroxyzine Pamoate 50 mg 12/21/16 15:26 12/25/16 01:02 Vistaril - PO 50 mg Q4H PRN Administration AGITATION Ibuprofen 400 mg 12/21/16 15:26 Motrin - PO Q6H PRN SEVERE PAIN Lidocaine 1 patch 12/22/16 10:00 12/25/16 10:28 Lidoderm Patch - TP 1 patch DAILY BON Administration Loperamide HCl 4 mg 12/21/16 15:26 Imodium - PO Q6H PRN DIARRHEA Magnesium Citrate 300 ml 12/21/16 15:26 Citroma - PO Q48H PRN CONSTIPATION Magnesium Hydroxide 30 ml 12/21/16 15:26 Milk Of Magnesia - PO DAILY PRN CONSTIPATION Methadone HCl 5 mg 12/26/16 06:00 Dolophine - PO 12/26/16 06:01 DAILY@0600 BON Mirtazapine 15 mg 12/25/16 22:00 Remeron - PO HS BON Miscellaneous 1 each 12/21/16 22:00 12/24/16 23:16 Lidoderm Patch Removal MC 1 each DAILY@2200 BON Administration Nicotine 21 mg 12/22/16 10:00 12/25/16 10:27 Nicoderm Patch - TD 21 mg DAILY BON Administration Nicotine Polacrilex 4 mg 12/21/16 15:26 12/24/16 23:25 Nicorette Gum - BC 4 mg Q2H PRN Administration NICOTINE REPLACEMENT RX Pantoprazole Sodium 40 mg 12/26/16 10:00 Protonix - PO DAILY BON Multivit/Folic Acid/Iron 1 tab 12/22/16 10:00 12/25/16 10:27 Vitamins ([facility]) - PO 1 tab DAILY BON Administration Pseudoephedrine/Triprolidine 1 combo 12/21/16 15:26 Actifed - PO TID PRN NASAL CONGESTION Quetiapine Fumarate 100 mg 12/22/16 22:00 12/24/16 22:26 Seroquel - PO 100 mg HS BON Administration Thiamine HCl 100 mg 12/21/16 22:00 12/24/16 22:26 Vitamin B1 - PO 100 mg HS BON Administration Medication(s) Change(s): Remeron 15mg po qhs Mental Status Exam - Mental Status Exam Alert and Oriented to: Person Cognitive Function: Fair Patient Appearance: Well Groomed Mood: Anxious Affect: Mood Congruent Patient Behavior: Cooperative Speech Pattern: Appropriate Voice Loudness: Normal Thought Process: Goal Oriented Thought Disorder: Being Controlled Hallucinations: Denies Suicidal Ideation: Denies Homicidal Ideation: Denies Insight/Judgement: Fair Sleep: Difficulty falling asleep Appetite: Fair Muscle strength/Tone: Normal Gait/Station: Normal Additional Comments: Remeron 15mg po qhs
[2016-12-25] MEDS: NICOTINE POLACRILEX 4 MG GUM BC PRN ×2 (17:53→22:28)
[2016-12-25] MEDS ORDERED: MIRTAZAPINE 15 MG TABLET (FP) PO SCH (22:00)
[2016-12-25] MEDS: LIDOCAINE PATCH REMOVAL MC SCH (22:26)
[2016-12-25] MEDS: THIAMINE HCL 100 MG TABLET (FP) PO SCH (22:26)
[2016-12-25] MEDS: QUEtiapine FUMARATE 100 MG TABLET (FP) PO SCH (22:26)
[2016-12-26] MEDS ORDERED: METHADONE HCL 5 MG TABLET (FOR DETOX USE ONLY) PO SCH (06:00)
--- NOTE | 2016-12-26 08:25 | DS ---
[facility] Detox Discharge Summary Admission Date: 12/21/16 Discharge Date: 12/26/16 - History Present History: Opioid Dependence Pertinent Past History: nicotine dependence, anxiety, depression, insomnia - Physical Exam Results Vital Signs: Vital Signs Temperature 97.5 F L 12/26/16 06:41 Pulse Rate 70 12/26/16 06:41 Respiratory Rate 18 12/26/16 06:41 Blood Pressure 106/55 12/26/16 06:41 O2 Sat by Pulse Oximetry (%) Laboratory Tests 12/21/16 12/22/16 12/22/16 22:00 06:11 06:11 WBC 8.0 RBC 4.75 Hgb 14.2 Hct 40.8 MCV 86.0 MCH 29.9 MCHC 34.8 RDW 12.7 Plt Count 270 MPV 8.7 Sodium 139 Potassium 3.7 Chloride 104 Carbon Dioxide 23 D Anion Gap 12 BUN 12 Creatinine 1.1 Creat Clearance w eGFR > 60 POC Glucometer Random Glucose 118 H Fasting Glucose Calcium 9.8 Total Bilirubin 0.9 D AST 28 D ALT 76 D Alkaline Phosphatase 52 Total Protein 8.4 H Albumin 4.7 Urine Color Yellow Urine Appearance Clear Urine pH 7.0 D Ur Specific [place] 1.020 Urine Protein Negative Urine Glucose (UA) Negative Urine Ketones 1+ H Urine Blood Negative Urine Nitrite Negative Urine Bilirubin Negative Urine Urobilinogen 2.0 RPR Titer 12/22/16 12/24/16 12/25/16 06:11 07:30 16:29 WBC RBC Hgb Hct MCV MCH MCHC RDW Plt Count MPV Sodium Potassium Chloride Carbon Dioxide Anion Gap BUN Creatinine Creat Clearance w eGFR POC Glucometer 129 Random Glucose Fasting Glucose 148 H Calcium Total Bilirubin AST ALT Alkaline Phosphatase Total Protein Albumin Urine Color Urine Appearance Urine pH Ur Specific [place] Urine Protein Urine Glucose (UA) Urine Ketones Urine Blood Urine Nitrite Urine Bilirubin Urine Urobilinogen RPR Titer Nonreactive 12/26/16 06:29 WBC RBC Hgb Hct MCV MCH MCHC RDW Plt Count MPV Sodium Potassium Chloride Carbon Dioxide Anion Gap BUN Creatinine Creat Clearance w eGFR POC Glucometer 137 Random Glucose Fasting Glucose Calcium Total Bilirubin AST ALT Alkaline Phosphatase Total Protein Albumin Urine Color Urine Appearance Urine pH Ur Specific [place] Urine Protein Urine Glucose (UA) Urine Ketones Urine Blood Urine Nitrite Urine Bilirubin Urine Urobilinogen RPR Titer Pertinent Admission Physical Exam Findings: withdrawal sx - Treatment Hospital Course: Detox Protocol Followed, Detoxed Safely, Responded well, Discharged Condition Good, Rehab Referral Accepted Patient has Accepted a Rehab Referral to: Yes - Medication Discharge Medications: Ambulatory Orders Quetiapine Fumarate [Seroquel] 100 mg PO HS #30 tablet 12/22/16 Mirtazapine [Remeron -] 15 mg PO HS #30 tablet 12/25/16 Quetiapine Fumarate [Seroquel] 100 mg PO HS #30 tablet 12/25/16 - Diagnosis (1) Opioid dependence with withdrawal Current Visit: Yes Status: Chronic (2) Nicotine dependence Current Visit: Yes Status: Chronic Qualifiers: Nicotine product type: cigarettes Substance use status: uncomplicated Qualified Code(s): F17.210 - Nicotine dependence, cigarettes, uncomplicated (3) Opioid-induced sleep disorder, insomnia type, with onset during discontinuation/withdrawal Current Visit: No Status: Acute (4) Drug-induced mood disorder Current Visit: No Status: Suspected - AMA Did Patient Leave Against Medical Advice: No
[2016-12-26] MEDS: PRENATAL VITAMINS W/ FOLIC ACID TABLET (FP) PO SCH (09:25)
[2016-12-26] MEDS: cloNIDine HCL 0.1 MG TABLET PO SCH (09:25)
[2016-12-26] MEDS: NICOTINE 21 MG/24 HOURS TOPICAL PATCH TD SCH (09:26)
[2016-12-26] MEDS: LIDOCAINE 5% TOPICAL PATCH TP SCH (09:27)
[2016-12-26] MEDS ORDERED: PANTOPRAZOLE 40 MG TABLET (FP) PO SCH (10:00)
[2016-12-26 10:01] VITALS: BP 131/66; PULSE 85; TEMP 97.7
== END 2016-12-26 09:35 | disposition home or self-care (01) | DRG 773 ==
LOC: YASAS 09:54 → Y6N 16:48
PROVIDERS: ADMIT Internal Medicine; ATTEND Internal Medicine
PROC: HZ2ZZZZ Detoxification Services for Substance Abuse Treatment (ICD-10-PCS; principal; 2016-12-21)
DX: F11.23 Opioid dependence with withdrawal (principal); F11.282 Opioid dependence with opioid-induced sleep disorder; F17.210 Nicotine dependence, cigarettes, uncomplicated; F19.24 Other psychoactive substance dependence with psychoactive substance-induced mood disorder; G47.00 Insomnia, unspecified
CPT/HCPCS: 36415; 80053; 81003; 82947; 85027; 86593; 93005; 93010

== ENCOUNTER 2017-03-05 10:40 | Inpatient (IN) | payer OTHER ==
[2017-03-05 13:05] VITALS: BMI 25.2
--- NOTE | 2017-03-05 15:17 | HP ---
COWS - Scale Resting Pulse: 1= [place] 81-100 Sweatin=Flushed/Facial Moisture Restless Observation: 1= Difficult to Sit Still Pupil Size: 0= Normal to Room Light Bone or Joint Aches: 2= Severe Diffuse Aches Runny Nose/ Eye Tearin= Runny Nose/Eyes GI Upset > 30mins: 1= Stomach Cramp Tremor Observation: 2= Slight Tremor Visible Yawning Observation: 2= >3x During Session Anxiety or Irritability: 2=Irritable/Anxious Goose Flesh Skin: 0=Smooth Skin COWS Score: 15 Admission ROS S - HPI Chief Complaint: I need to stop using. Allergies/Adverse Reactions: Allergies Allergy/AdvReac Type Severity Reaction Status Date / Time No Known Allergies Allergy Verified 03/05/17 13:44 History of Present Illness: pt is a 26yr old male with a history of heroin dependence seeking detox for treatment. Exam Limitations: Language Barrier (understand/speaks romanian only) - Ebola screening Have you traveled outside of the country in the last 21 days: No Have you had contact with anyone from an Ebola affected area: No Have you been sick,other than usual withdrawal symptoms: No Do you have a fever: No - Review of Systems Constitutional: Chills, Diaphoresis, Loss of Appetite, Night Sweats, Changes in sleep EENT: reports: Tearing, Nose Congestion Respiratory: reports: No Symptoms reported Cardiac: reports: No Symptoms Reported GI: reports: Poor Appetite, Poor Fluid Intake : reports: No Symptoms Reported Musculoskeletal: reports: No Symptoms Reported, Joint Pain Integumentary: reports: Flushing, Sweating Neuro: reports: Tingling, Tremors Endocrine: reports: Intolerance to Cold, Intolerance to Heat Hematology: reports: No Symptoms Reported Psychiatric: reports: Judgement Intact, Mood/Affect Appropiate, Orientated x3, Agitated, Anxious Other Systems: Reviewed and Negative Patient History - Patient Medical History Hx Anemia: No Hx Asthma: No Hx Chronic Obstructive Pulmonary Disease (COPD): No Hx Cancer: No Hx Cardiac Disorders: No Hx Congestive Heart Failure: No Hx Hypertension: No Hx Hypercholesterolemia: No Hx Pacemaker: No HX Cerebrovascular Accident: No Hx Seizures: No Hx Diabetes: No Hx Gastrointestinal Disorders: No Hx Liver Disease: No Hx Genitourinary Disorders: No Hx Sexually Transmitted Disorders: No Hx Renal Disease (ESRD): No Hx Thyroid Disease: No Hx Human Immunodeficiency Virus (HIV): No (NEGATIVE HX) Hx Hepatitis C: No Hx Depression: Yes Hx Suicide Attempt: No (denies) Hx Bipolar Disorder: No Hx Schizophrenia: No - Patient Surgical History Past Surgical History: No Hx Neurologic Surgery: No Hx Cataract Extraction: No Hx Cardiac Surgery: No Hx Lung Surgery: No Hx Breast Surgery: No Hx Breast Biopsy: No Hx Abdominal Surgery: No Hx Appendectomy: No Hx Cholecystectomy: No Hx Genitourinary Surgery: No Hx Section: No Hx Orthopedic Surgery: No Anesthesia Reaction: No - PPD History Previous Implant?: Yes Documented Results: Negative w/proof Implanted On Prior [facility] Admission?: Yes Date: 11/22/16 Results: 0 mm PPD to be Administered?: No - Reproductive History Patient is a Female of Child Bearing Age (11 -55 yrs old): No - Smoking Cessation Smoking history: Current every day smoker Have you smoked in the past 12 months: Yes Aproximately how many cigarettes per day: 30 Hx Chewing Tobacco Use: No Initiated information on smoking cessation: Yes 'Breaking Loose' booklet given: 03/05/17 - Substance & Tx. History Hx Substance Use: Yes Substance Use Type: Heroin Hx Substance Use Treatment: Yes (last detox 10/2016) - Substances Abused Heroin Route: Inhalation Frequency: Daily Amount used: 10 bags Age of first use: 8 Date of Last Use: 03/05/17 Family Disease History - Family Disease History Family Disease History: Diabetes: Grandparent Admission Physical Exam BHS - Vital Signs Vital Signs: Vital Signs - 24 hr 03/05/17 13:03 Temperature 96.3 F L Pulse Rate 85 Respiratory 20 Rate Blood Pressure 120/65 - Physical General Appearance: Yes: Appropriately Dressed, Moderate Distress, Tremorous, Irritable, Sweating, Anxious HEENTM: Yes: Hearing grossly Normal, Normal Voice, Nasal Congestion, Rhinorrhea Respiratory: Yes: Lungs Clear, Normal Breath Sounds, No Respiratory Distress Neck: Yes: No masses,lesions,Nodules Breast: Yes: Within Normal Limits Cardiology: Yes: Regular Rhythm, Regular Rate, S1, S2 Abdominal: Yes: Normal Bowel Sounds, Non Tender, Flat Genitourinary: Yes: Within Normal Limits Back: Yes: Normal Inspection Musculoskeletal: Yes: full range of Motion, Back pain Extremities: Yes: Normal Capillary Refill, Tremors Neurological: Yes: Fully Oriented, Alert, Normal Response Integumentary: Yes: Normal Color, Diaphoresis Lymphatic: Yes: Within Normal Limits - Diagnostic (1) Nicotine dependence Current Visit: Yes Status: Chronic Qualifiers: Nicotine product type: cigarettes Substance use status: uncomplicated Qualified Code(s): F17.210 - Nicotine dependence, cigarettes, uncomplicated (2) Opioid dependence with withdrawal Current Visit: Yes Status: Chronic Cleared for Admission [facility] - Detox or Rehab [facility] Level of Care: Medically Managed Detox Regimen/Protocol: Methadone [facility] Breath Alcohol Content Breath Alcohol Content: 0 Urine Drug Screen - Results Drug Screen Negative: No Urine Drug Screen Results: OPI-Opiates, TCA-Tricyclic Antidepress
[2017-03-05] MEDS ORDERED: P-EPHED 60MG/TRIPROLIDI 2.5MG TABLET PO PRN (15:30)
[2017-03-05] MEDS ORDERED: LOPERAMIDE HCL 2 MG CAPSULE PO PRN (15:30)
[2017-03-05] MEDS ORDERED: guaiFENesin/D-METHORPHAN HB 10 ML UNIT-DOSE CUPS PO PRN (15:30)
[2017-03-05] MEDS ORDERED: ACETAMINOPHEN 325 MG TABLET (FP) PO PRN (15:30)
[2017-03-05] MEDS ORDERED: MAGNESIUM CITRATE 300 ML BOTTLE PO PRN (15:30)
[2017-03-05] MEDS ORDERED: MAG HYDROX/AL HYDROX/SIMETH 30 ML UNIT-DOSE CUP PO PRN (15:30)
[2017-03-05] MEDS ORDERED: IBUPROFEN 400 MG TABLET (FP) PO PRN (15:30)
[2017-03-05] MEDS ORDERED: MENTHOL/PHENOL 1 EACH UD MM PRN (15:30)
[2017-03-05] MEDS ORDERED: MAGNESIUM HYDROX 2400MG/30ML ORAL SUSPENSION 30 ML CUP PO PRN (15:30)
[2017-03-05] MEDS ORDERED: METHADONE HCL 10 MG TABLET (FOR DETOX USE ONLY) PO ONE ×2 (15:39→23:00)
[2017-03-05] MEDS: diazePAM 5 MG TABLET PO PRN ×2 (15:54→22:29)
[2017-03-05] MEDS: NICOTINE POLACRILEX 4 MG GUM BUC PRN (19:46)
[2017-03-05 20:23] LABS: URINE APPEARANCE SLCLOUDY; URINE BILIRUBIN NEGATIVE (NEGATIVE); URINE BLOOD NEGATIVE (NEGATIVE); URINE COLOR YELLOW; URINE GLUCOSE (UA) NEGATIVE (NEGATIVE); URINE KETONE NEGATIVE (NEGATIVE); URINE NITRITE NEGATIVE (NEGATIVE); URINE PROTEIN NEGATIVE (NEGATIVE); URINE UROBILINOGEN NEGATIVE mg/dL (0.2-1.0)
[2017-03-05] MEDS: THIAMINE HCL 100 MG TABLET (FP) PO SCH (22:26)
[2017-03-05 22:33] LABS: URINE LEUK ESTERASE Negative (NEGATIVE)
[2017-03-06] MEDS: NICOTINE POLACRILEX 4 MG GUM BUC PRN ×3 (09:08→19:22)
[2017-03-06] MEDS ORDERED: METHADONE HCL 10 MG TABLET (FOR DETOX USE ONLY) PO ONE (10:00)
[2017-03-06 10:15] LABS: MCH 29.6 pg (25.7-33.7); MCHC 33.1 g/dl (32.0-35.9); MEAN CELL VOLUME 89.6 fl (80-96); MEAN PLT VOLUME 8.6 fl (7.5-11.1); PLATELET COUNT 246 K/MM3 (134-434); RDW 13.6 % (11.9-15.9); WHITE BLOOD COUNT 11.7 K/mm3 (4.0-10.0)
[2017-03-06 10:29] LABS: ALBUMIN 3.3 g/dl (3.4-5.0); ALK PHOS 49 U/L (45-117); ANION GAP 6 (8-16); BILIRUBIN,TOTAL 0.4 mg/dL (0.2-1.0); CALCIUM 8.3 mg/dL (8.5-10.1); CO2 28 mmol/L (21-32); CREATININE 1.1 mg/dL (0.7-1.3); GLUCOSE,RANDOM 102 mg/dL (74-106); SGOT/AST 10 U/L (15-37); SGPT/ALT 18 U/L (12-78); TOT PROT 6.3 g/dl (6.4-8.2)
[2017-03-06] MEDS: PRENATAL VITAMINS W/ FOLIC ACID TABLET (FP) PO SCH (10:35)
[2017-03-06] MEDS: NICOTINE 21 MG/24 HOURS TOPICAL PATCH TD SCH (10:36)
[2017-03-06] MEDS: diazePAM 5 MG TABLET PO PRN ×3 (10:37→22:25)
--- NOTE | 2017-03-06 14:32 | CONSULT ---
[facility] Psychiatric Consult - Data Date of interview: 03/06/17 Admission source: [facility] Identifying data: One of multiple admissions to [facility] for this 26 y/o male seeking detox treatment on for heroin and alcohol dependence.Patient is single,a father of one,domiciled,unemployed and supported by relatives. Substance Abuse History: Confirmed by patient.See current [facility] report for details. Smoking history: Current every day smoker. Have you smoked in the past 12 months: Yes. Aproximately how many cigarettes per day: 30. Hx Chewing Tobacco Use: No. Initiated information on smoking cessation: Yes. 'Breaking Loose' booklet given: 03/05/17. - Substance & Tx. History. Hx Substance Use: Yes. Substance Use Type: Heroin. Hx Substance Use Treatment: Yes (last detox ). - Substances Abused. Heroin. Route: Inhalation. Frequency: Daily. Amount used: 10 bags. Age of first use: 8. Date of Last Use: 03/05/17 Medical History: Patient endorses good general health. Psychiatric History: No reported history of psychiatric hospitalizations.No recent history of OPD care.Patient indicates that he was prescribed seroquel for insomnia (during a previous admission to [facility]).Mr Graham denies past history of suicide attempts. Physical/Sexual Abuse/Trauma History: No history. Additional Comment: Urine Drug Screen Results: OPI-Opiates, TCA-Tricyclic Antidepressant.Noted. Mental Status Exam - Mental Status Exam Alert and Oriented to: Time, Place, Person Cognitive Function: Good Patient Appearance: Well Groomed Mood: Hopeful, Euthymic Affect: Appropriate, Normal Range Patient Behavior: Appropriate, Cooperative Speech Pattern: Clear Voice Loudness: Normal Thought Process: Goal Oriented Thought Disorder: Not Present Hallucinations: Denies Suicidal Ideation: Denies Homicidal Ideation: Denies Insight/Judgement: Poor Sleep: Poorly, Difficulty falling asleep Appetite: Good Muscle strength/Tone: Normal Gait/Station: Normal Psychiatric Findings - Problem List ([place] 1, 2,3) (1) Opioid dependence with withdrawal Current Visit: Yes Status: Acute (2) Nicotine dependence Current Visit: Yes Status: Acute Qualifiers: Nicotine product type: cigarettes Substance use status: uncomplicated Qualified Code(s): F17.210 - Nicotine dependence, cigarettes, uncomplicated (3) Drug-induced mood disorder Current Visit: Yes Status: Acute (4) Insomnia Current Visit: Yes Status: Acute - Initial Treatment Plan Initial Treatment Plan: Psychoeducation.Detoxification.Seroquel 100 mg po hs.Side effects/benefits are discussed with the patient.He agrees with this careplan.Observation.
--- NOTE | 2017-03-06 15:47 | PN ---
BHS COWS - Scale Resting Pulse: 1= [place] 81-100 Sweatin= Chills/Flushing Restless Observation: 1= Difficult to Sit Still Pupil Size: 0= Normal to Room Light Bone or Joint Aches: 2= Severe Diffuse Aches Runny Nose/ Eye Tearin= None GI Upset > 30mins: 0= None Tremor Observation of Outstretched Hands: 2= Slight Tremor Visible Yawning Observation: 1= 1-2x During Session Anxiety or Irritability: 2=Irritable/Anxious Goose Flesh Skin: 3=Piloerection COWS Score: 13 BHS Progress Note (SOAP) Subjective: Interrupted Sleep, Sweating, Tremors, H/A, Fatigue. Objective: PT. A & O X 3, OBSERVED AMBULATING ON UNIT. NO ACUTE DISTRESS. 03/06/17 15:46 Vital Signs Temperature 98.0 F 03/06/17 13:47 Pulse Rate 95 H 03/06/17 13:47 Respiratory Rate 20 03/06/17 13:47 Blood Pressure 132/79 03/06/17 13:47 O2 Sat by Pulse Oximetry (%) Laboratory Tests 03/05/17 03/06/17 03/06/17 19:40 07:00 07:00 WBC 11.7 H D RBC 4.48 Hgb 13.3 Hct 40.2 MCV 89.6 MCH 29.6 MCHC 33.1 RDW 13.6 Plt Count 246 MPV 8.6 Sodium 137 Potassium 4.0 Chloride 103 Carbon Dioxide 28 D Anion Gap 6 L BUN 9 D Creatinine 1.1 Creat Clearance w eGFR > 60 Random Glucose 102 Calcium 8.3 L Total Bilirubin 0.4 D AST 10 L D ALT 18 D Alkaline Phosphatase 49 Total Protein 6.3 L D Albumin 3.3 L D Urine Color Yellow Urine Appearance Slcloudy Urine pH 6.0 Ur Specific [place] 1.027 Urine Protein Negative Urine Glucose (UA) Negative Urine Ketones Negative Urine Blood Negative Urine Nitrite Negative Urine Bilirubin Negative Urine Urobilinogen Negative Ur Leukocyte Esterase Negative RPR Titer 03/06/17 07:00 WBC RBC Hgb Hct MCV MCH MCHC RDW Plt Count MPV Sodium Potassium Chloride Carbon Dioxide Anion Gap BUN Creatinine Creat Clearance w eGFR Random Glucose Calcium Total Bilirubin AST ALT Alkaline Phosphatase Total Protein Albumin Urine Color Urine Appearance Urine pH Ur Specific [place] Urine Protein Urine Glucose (UA) Urine Ketones Urine Blood Urine Nitrite Urine Bilirubin Urine Urobilinogen Ur Leukocyte Esterase RPR Titer Nonreactive LABS NOTED. Assessment: 03/06/17 15:46 WITHDRAWAL SYMPTOMS. Plan: CONTINUE DETOX. INCREASE DAILY PO FLUID INTAKE.
[2017-03-06] MEDS: QUEtiapine FUMARATE 100 MG TABLET (FP) PO SCH (22:23)
[2017-03-06] MEDS: THIAMINE HCL 100 MG TABLET (FP) PO SCH (22:23)
--- NOTE | 2017-03-07 08:02 | EKG ---
Test Reason : Blood Pressure : / mmHG Vent. Rate : 067 BPM Atrial Rate : 067 BPM P-R Int : 166 ms QRS Dur : 086 ms QT Int : 366 ms P-R-T Axes : 004 071 050 degrees QTc Int : 386 ms NORMAL SINUS RHYTHM NORMAL ECG WHEN COMPARED WITH ECG OF 21-DEC-2016 16:35, NO SIGNIFICANT CHANGE WAS FOUND Confirmed by MD Joe Daniel ([id number]) on 03/06/2017 3:04:58 PM Also confirmed by MD Joe Daniel ([id number]), newspaper managing editor FREDERICK HAYNES ([id number]) on 03/07/2017 8:02:03 AM Referred By: Mino Medrano Confirmed By:Frederick Joe MD
[2017-03-07] MEDS: NICOTINE POLACRILEX 4 MG GUM BUC PRN ×3 (08:35→17:38)
[2017-03-07] MEDS ORDERED: METHADONE HCL 5 MG TABLET (FOR DETOX USE ONLY) PO ONE (10:00)
[2017-03-07] MEDS: PRENATAL VITAMINS W/ FOLIC ACID TABLET (FP) PO SCH (10:19)
[2017-03-07] MEDS: NICOTINE 21 MG/24 HOURS TOPICAL PATCH TD SCH (10:19)
[2017-03-07] MEDS: diazePAM 5 MG TABLET PO PRN ×3 (10:21→22:28)
--- NOTE | 2017-03-07 15:14 | PN ---
BHS COWS - Scale Resting Pulse: 1= [place] 81-100 Sweatin= Chills/Flushing Restless Observation: 1= Difficult to Sit Still Pupil Size: 0= Normal to Room Light Bone or Joint Aches: 2= Severe Diffuse Aches Runny Nose/ Eye Tearin= Runny Nose/Eyes GI Upset > 30mins: 0= None Tremor Observation of Outstretched Hands: 2= Slight Tremor Visible Yawning Observation: 1= 1-2x During Session Anxiety or Irritability: 4=Extreme Anxiety Goose Flesh Skin: 0=Smooth Skin COWS Score: 14 BHS Progress Note (SOAP) Subjective: Tremors, Body Aches, Interrupted Sleep, Anxious. Objective: PT. A & O X 3, OBSERVED AMBULATING ON UNIT. NO ACUTE DISTRESS. 03/07/17 15:12 Vital Signs Temperature 97.1 F L 03/07/17 13:10 Pulse Rate 85 03/07/17 13:10 Respiratory Rate 18 03/07/17 13:10 Blood Pressure 114/76 03/07/17 13:10 O2 Sat by Pulse Oximetry (%) Laboratory Tests 03/05/17 03/06/17 03/06/17 19:40 07:00 07:00 WBC 11.7 H D RBC 4.48 Hgb 13.3 Hct 40.2 MCV 89.6 MCH 29.6 MCHC 33.1 RDW 13.6 Plt Count 246 MPV 8.6 Sodium 137 Potassium 4.0 Chloride 103 Carbon Dioxide 28 D Anion Gap 6 L BUN 9 D Creatinine 1.1 Creat Clearance w eGFR > 60 Random Glucose 102 Calcium 8.3 L Total Bilirubin 0.4 D AST 10 L D ALT 18 D Alkaline Phosphatase 49 Total Protein 6.3 L D Albumin 3.3 L D Urine Color Yellow Urine Appearance Slcloudy Urine pH 6.0 Ur Specific [place] 1.027 Urine Protein Negative Urine Glucose (UA) Negative Urine Ketones Negative Urine Blood Negative Urine Nitrite Negative Urine Bilirubin Negative Urine Urobilinogen Negative Ur Leukocyte Esterase Negative RPR Titer 03/06/17 07:00 WBC RBC Hgb Hct MCV MCH MCHC RDW Plt Count MPV Sodium Potassium Chloride Carbon Dioxide Anion Gap BUN Creatinine Creat Clearance w eGFR Random Glucose Calcium Total Bilirubin AST ALT Alkaline Phosphatase Total Protein Albumin Urine Color Urine Appearance Urine pH Ur Specific [place] Urine Protein Urine Glucose (UA) Urine Ketones Urine Blood Urine Nitrite Urine Bilirubin Urine Urobilinogen Ur Leukocyte Esterase RPR Titer Nonreactive LABS NOTED. Assessment: 03/07/17 15:12 WITHDRAWAL SYMPTOMS. Plan: CONTINUE DETOX. INCREASE DAILY PO FLUID INTAKE.
[2017-03-07] MEDS: THIAMINE HCL 100 MG TABLET (FP) PO SCH (22:28)
[2017-03-07] MEDS: QUEtiapine FUMARATE 100 MG TABLET (FP) PO SCH (22:29)
[2017-03-08] MEDS: diazePAM 5 MG TABLET PO PRN ×2 (06:13→10:45)
[2017-03-08] MEDS ORDERED: METHADONE HCL 5 MG TABLET (FOR DETOX USE ONLY) PO ONE (10:00)
[2017-03-08] MEDS: PRENATAL VITAMINS W/ FOLIC ACID TABLET (FP) PO SCH (10:42)
[2017-03-08] MEDS: NICOTINE 21 MG/24 HOURS TOPICAL PATCH TD SCH (10:43)
[2017-03-08] MEDS: NICOTINE POLACRILEX 4 MG GUM BUC PRN (14:31)
--- NOTE | 2017-03-08 15:47 | PN ---
Psychiatric Progress Note Vital Signs: Vital Signs Period Temp Pulse Resp BP Sys/Atkinson Pulse Ox Last 24 Hr 96.6 F-99.0 F 80-110 18-20 105-118/63-76 Date of Session: 03/08/17 Chief Complaint:: "I feel anxious." HPI: Pt. reports feeling anxious and restless. ROS: Pt. alert and oriented X3. Pt. visible and ambulating on unit. Current Medications: Active Medications Generic Name Dose Route Start Last Admin Trade Name Freq PRN Reason Stop Dose Admin Acetaminophen 650 mg 03/05/17 15:30 Tylenol - PO Q4H PRN FEVER OR PAIN Al Hydroxide/Mg Hydroxide 30 ml 03/05/17 15:30 Mylanta Oral Suspension - PO Q6H PRN DYSPEPSIA Eucalyptus/Menthol/Phenol/Sorbitol 1 each 03/05/17 15:30 Cepastat Lozenge - MM Q4H PRN SORE THROAT Guaifenesin 10 ml 03/05/17 15:30 Robitussin Dm - PO Q6H PRN COUGH Hydroxyzine Pamoate 50 mg 03/05/17 15:30 Vistaril - PO Q4H PRN AGITATION Ibuprofen 400 mg 03/05/17 15:30 Motrin - PO Q6H PRN SEVERE PAIN Loperamide HCl 4 mg 03/05/17 15:30 Imodium - PO Q6H PRN DIARRHEA Magnesium Citrate 300 ml 03/05/17 15:30 Citroma - PO Q48H PRN CONSTIPATION Magnesium Hydroxide 30 ml 03/05/17 15:30 Milk Of Magnesia - PO DAILY PRN CONSTIPATION Methadone HCl 5 mg 03/10/17 06:00 Dolophine - PO 03/10/17 06:01 ONCE@0600 ONE Methadone HCl 10 mg 03/09/17 10:00 Dolophine - PO 03/09/17 10:01 ONCE ONE Nicotine 21 mg 03/06/17 10:00 03/08/17 10:43 Nicoderm Patch - TD 21 mg DAILY BON Administration Nicotine Polacrilex 4 mg 03/05/17 15:30 03/08/17 14:31 Nicorette Gum - BUC 4 mg Q2H PRN Administration NICOTINE REPLACEMENT RX Multivit/Folic Acid/Iron 1 tab 03/06/17 10:00 03/08/17 10:42 Vitamins (Sjr) - PO 1 tab DAILY BON Administration Pseudoephedrine/Triprolidine 1 combo 03/05/17 15:30 Actifed - PO TID PRN NASAL CONGESTION Quetiapine Fumarate 100 mg 03/06/17 22:00 03/07/17 22:29 Seroquel - PO 100 mg HS BON Administration Thiamine HCl 100 mg 03/05/17 22:00 03/07/17 22:28 Vitamin B1 - PO 100 mg HS BON Administration Current Side Effect: No Lab tests ordered: No Lab tests reviewed: No Provider note:: Psychoeducation provided. Detoxification in progress. No additional medications added at this time. Pt informed that vistaril 50mg is available q4 for agitation. Will continue to monitor patient. Total face to face time:: 25 Mental Status Exam - Mental Status Exam Alert and Oriented to: Time, Place, Person Cognitive Function: Fair Patient Appearance: Well Groomed Mood: Depressed, Nervous Affect: Flat Patient Behavior: Appropriate, Cooperative Speech Pattern: Clear, Appropriate Voice Loudness: Normal Thought Process: Intact Hallucinations: Denies Suicidal Ideation: Denies Homicidal Ideation: Denies Insight/Judgement: Fair Sleep: Well Appetite: Fair Muscle strength/Tone: Normal Gait/Station: Normal Psychiatric Treatment Plan - Problem List (1) Nicotine dependence Current Visit: Yes Qualifiers: Nicotine product type: cigarettes Substance use status: uncomplicated Qualified Code(s): F17.210 - Nicotine dependence, cigarettes, uncomplicated (2) Opioid dependence with withdrawal Current Visit: Yes (3) Substance induced mood disorder Current Visit: Yes Comment: substance induced mood disorder suspected. (4) Opioid-induced sleep disorder, insomnia type, with onset during discontinuation/withdrawal Current Visit: No
[2017-03-08] MEDS: hydrOXYzine PAMOATE 50 MG CAPSULE (FP) PO PRN (17:29)
--- NOTE | 2017-03-08 19:44 | PN ---
BHS Progress Note (SOAP) Subjective: Anxious, Tremors, Sweating, Body Aches. Objective: PT. A & O X 3, OBSERVED AMBULATING ON UNIT. NO ACUTE DISTRESS. 03/08/17 19:42 Vital Signs Temperature 98.5 F 03/08/17 17:59 Pulse Rate 95 H 03/08/17 17:59 Respiratory Rate 16 03/08/17 17:59 Blood Pressure 109/65 03/08/17 17:59 O2 Sat by Pulse Oximetry (%) Laboratory Tests 03/05/17 03/06/17 03/06/17 19:40 07:00 07:00 WBC 11.7 H D RBC 4.48 Hgb 13.3 Hct 40.2 MCV 89.6 MCH 29.6 MCHC 33.1 RDW 13.6 Plt Count 246 MPV 8.6 Sodium 137 Potassium 4.0 Chloride 103 Carbon Dioxide 28 D Anion Gap 6 L BUN 9 D Creatinine 1.1 Creat Clearance w eGFR > 60 Random Glucose 102 Calcium 8.3 L Total Bilirubin 0.4 D AST 10 L D ALT 18 D Alkaline Phosphatase 49 Total Protein 6.3 L D Albumin 3.3 L D Urine Color Yellow Urine Appearance Slcloudy Urine pH 6.0 Ur Specific [place] 1.027 Urine Protein Negative Urine Glucose (UA) Negative Urine Ketones Negative Urine Blood Negative Urine Nitrite Negative Urine Bilirubin Negative Urine Urobilinogen Negative Ur Leukocyte Esterase Negative RPR Titer 03/06/17 07:00 WBC RBC Hgb Hct MCV MCH MCHC RDW Plt Count MPV Sodium Potassium Chloride Carbon Dioxide Anion Gap BUN Creatinine Creat Clearance w eGFR Random Glucose Calcium Total Bilirubin AST ALT Alkaline Phosphatase Total Protein Albumin Urine Color Urine Appearance Urine pH Ur Specific [place] Urine Protein Urine Glucose (UA) Urine Ketones Urine Blood Urine Nitrite Urine Bilirubin Urine Urobilinogen Ur Leukocyte Esterase RPR Titer Nonreactive LABS NOTED. Assessment: 03/08/17 19:43 WITHDRAWAL SYMPTOMS. Plan: CONTINUE DETOX. PSYCH CONSULT ORDERED FOR ANXIETY. INCREASE DAILY PO FLUID INTAKE.
[2017-03-08] MEDS: QUEtiapine FUMARATE 100 MG TABLET (FP) PO SCH (22:27)
[2017-03-08] MEDS: THIAMINE HCL 100 MG TABLET (FP) PO SCH (22:27)
[2017-03-09] MEDS ORDERED: METHADONE HCL 10 MG TABLET (FOR DETOX USE ONLY) PO ONE (10:00)
[2017-03-09] MEDS: NICOTINE 21 MG/24 HOURS TOPICAL PATCH TD SCH (10:50)
[2017-03-09] MEDS: PRENATAL VITAMINS W/ FOLIC ACID TABLET (FP) PO SCH (10:50)
[2017-03-09] MEDS: hydrOXYzine PAMOATE 50 MG CAPSULE (FP) PO PRN ×4 (10:51→22:46)
[2017-03-09] MEDS: NICOTINE POLACRILEX 4 MG GUM BUC PRN ×2 (12:34→18:50)
--- NOTE | 2017-03-09 16:06 | PN ---
BHS Progress Note (SOAP) Subjective: Sweating, Anxious (Patient denies Suicidal Ideation), Hot / Cold sensations. Objective: PT. A & O X 3, OBSERVED AMBULATING ON UNIT. NO ACUTE DISTRESS. 03/09/17 16:04 Vital Signs Temperature 98.1 F 03/09/17 13:05 Pulse Rate 102 H 03/09/17 13:05 Respiratory Rate 18 03/09/17 13:05 Blood Pressure 109/75 03/09/17 13:05 O2 Sat by Pulse Oximetry (%) Laboratory Tests 03/05/17 03/06/17 03/06/17 19:40 07:00 07:00 WBC 11.7 H D RBC 4.48 Hgb 13.3 Hct 40.2 MCV 89.6 MCH 29.6 MCHC 33.1 RDW 13.6 Plt Count 246 MPV 8.6 Sodium 137 Potassium 4.0 Chloride 103 Carbon Dioxide 28 D Anion Gap 6 L BUN 9 D Creatinine 1.1 Creat Clearance w eGFR > 60 Random Glucose 102 Calcium 8.3 L Total Bilirubin 0.4 D AST 10 L D ALT 18 D Alkaline Phosphatase 49 Total Protein 6.3 L D Albumin 3.3 L D Urine Color Yellow Urine Appearance Slcloudy Urine pH 6.0 Ur Specific [place] 1.027 Urine Protein Negative Urine Glucose (UA) Negative Urine Ketones Negative Urine Blood Negative Urine Nitrite Negative Urine Bilirubin Negative Urine Urobilinogen Negative Ur Leukocyte Esterase Negative RPR Titer 03/06/17 07:00 WBC RBC Hgb Hct MCV MCH MCHC RDW Plt Count MPV Sodium Potassium Chloride Carbon Dioxide Anion Gap BUN Creatinine Creat Clearance w eGFR Random Glucose Calcium Total Bilirubin AST ALT Alkaline Phosphatase Total Protein Albumin Urine Color Urine Appearance Urine pH Ur Specific [place] Urine Protein Urine Glucose (UA) Urine Ketones Urine Blood Urine Nitrite Urine Bilirubin Urine Urobilinogen Ur Leukocyte Esterase RPR Titer Nonreactive LABS NOTED. Assessment: 03/09/17 16:05 WITHDRAWAL SYMPTOMS. Plan: CONTINUE DETOX. INCREASE DAILY PO FLUID INTAKE.
[2017-03-09] MEDS: THIAMINE HCL 100 MG TABLET (FP) PO SCH (22:45)
[2017-03-09] MEDS: QUEtiapine FUMARATE 100 MG TABLET (FP) PO SCH (22:45)
[2017-03-10] MEDS ORDERED: METHADONE HCL 5 MG TABLET (FOR DETOX USE ONLY) PO ONE (06:00)
[2017-03-10 06:28] VITALS: BP 109/59; PULSE 79; TEMP 97
--- NOTE | 2017-03-10 18:52 | DS ---
[facility] Detox Discharge Summary Admission Date: 03/05/17 Discharge Date: 03/10/17 - History Present History: Opioid Dependence Additional Comments: PATIENT GOING TO [facility] SUBST[facility] USE TREATMENT [facility]GRAM ([email or web address]) FOR AFTERCARE. PATIENT ALSO WILL GO FOR CONSULTATION WITH MEDICAL PROVIDER DR. ROSALES (ERLINDA N.Maria L) FOR POSSIBLE SUBOXONE THERAPY INDUCTION. PATIENT WAS DISCHARGED FROM DETOX UNIT IN STABLE MEDICAL CONDITION. Pertinent Past History: Depression, Insomnia, Nicotine Dependence. - Physical Exam Results Vital Signs: Vital Signs Temperature 97 F L 03/10/17 06:28 Pulse Rate 79 03/10/17 06:28 Respiratory Rate 18 03/10/17 06:28 Blood Pressure 109/59 03/10/17 06:28 O2 Sat by Pulse Oximetry (%) Pertinent Admission Physical Exam Findings: WITHDRAWAL SYMPTOMS. Laboratory Tests 03/05/17 03/06/17 03/06/17 19:40 07:00 07:00 WBC 11.7 H D RBC 4.48 Hgb 13.3 Hct 40.2 MCV 89.6 MCH 29.6 MCHC 33.1 RDW 13.6 Plt Count 246 MPV 8.6 Sodium 137 Potassium 4.0 Chloride 103 Carbon Dioxide 28 D Anion Gap 6 L BUN 9 D Creatinine 1.1 Creat Clearance w eGFR > 60 Random Glucose 102 Calcium 8.3 L Total Bilirubin 0.4 D AST 10 L D ALT 18 D Alkaline Phosphatase 49 Total Protein 6.3 L D Albumin 3.3 L D Urine Color Yellow Urine Appearance Slcloudy Urine pH 6.0 Ur Specific [place] 1.027 Urine Protein Negative Urine Glucose (UA) Negative Urine Ketones Negative Urine Blood Negative Urine Nitrite Negative Urine Bilirubin Negative Urine Urobilinogen Negative Ur Leukocyte Esterase Negative RPR Titer 03/06/17 07:00 WBC RBC Hgb Hct MCV MCH MCHC RDW Plt Count MPV Sodium Potassium Chloride Carbon Dioxide Anion Gap BUN Creatinine Creat Clearance w eGFR Random Glucose Calcium Total Bilirubin AST ALT Alkaline Phosphatase Total Protein Albumin Urine Color Urine Appearance Urine pH Ur Specific [place] Urine Protein Urine Glucose (UA) Urine Ketones Urine Blood Urine Nitrite Urine Bilirubin Urine Urobilinogen Ur Leukocyte Esterase RPR Titer Nonreactive LABS NOTED. - Treatment Hospital Course: Detox Protocol Followed, Detoxed Safely, Responded well, Discharged Condition Good Patient has Accepted a Rehab Referral to: PT GOING TO [facility] USE [facility]RE[facility]MENT [facility] ([facility] - Medication Discharge Medications: Ambulatory Orders Quetiapine Fumarate [Seroquel] 100 mg PO HS #30 tablet 12/22/16 Mirtazapine [Remeron -] 15 mg PO HS #30 tablet 12/25/16 Quetiapine Fumarate [Seroquel] 100 mg PO HS #30 tablet 03/06/17 - Diagnosis (1) Opioid dependence with withdrawal Status: Acute (2) Drug-induced mood disorder Status: Acute (3) Insomnia Status: Acute Qualifiers: Insomnia type: unspecified Qualified Code(s): G47.00 - Insomnia, unspecified (4) Nicotine dependence Status: Acute Qualifiers: Nicotine product type: cigarettes Substance use status: uncomplicated Qualified Code(s): F17.210 - Nicotine dependence, cigarettes, uncomplicated (5) Opioid-induced sleep disorder, insomnia type, with onset during discontinuation/withdrawal Status: Acute (6) Substance induced mood disorder Status: Acute - AMA Did Patient Leave Against Medical Advice: No
== END 2017-03-10 09:11 | disposition home or self-care (01) | DRG 773 ==
LOC: YASAS 10:40 → Y3N 15:05
PROVIDERS: ADMIT Internal Medicine; ATTEND Internal Medicine
PROC: HZ2ZZZZ Detoxification Services for Substance Abuse Treatment (ICD-10-PCS; principal; 2017-03-05)
DX: F11.23 Opioid dependence with withdrawal (principal); F17.210 Nicotine dependence, cigarettes, uncomplicated; F19.282 Other psychoactive substance dependence with psychoactive substance-induced sleep disorder; F19.24 Other psychoactive substance dependence with psychoactive substance-induced mood disorder; G47.00 Insomnia, unspecified
CPT/HCPCS: 36415; 80053; 81003; 85027; 86593; 93005; 93010

== ENCOUNTER 2022-01-30 10:41 | Inpatient (IN) | payer OTHER ==
[2022-01-30 12:07] VITALS: BMI 27.3
[2022-01-30] MEDS ORDERED: ONDANSETRON *ODT* 4 MG TABLET SL PRN (12:39)
[2022-01-30] MEDS ORDERED: LOPERAMIDE HCL 2 MG CAPSULE PO PRN (12:39)
[2022-01-30] MEDS ORDERED: BENZOCAINE/MENTHOL (CHLORASEPTIC ) LOZENGE MM PRN (12:39)
[2022-01-30] MEDS ORDERED: MAGNESIUM CITRATE 300 ML BOTTLE PO PRN (12:39)
[2022-01-30] MEDS ORDERED: ACETAMINOPHEN 325 MG TABLET (FP) PO PRN ×2 (12:39)
[2022-01-30] MEDS ORDERED: IBUPROFEN 400 MG TABLET (FP) PO PRN (12:39)
[2022-01-30] MEDS ORDERED: DICYCLOMINE HCL 10 MG CAPSULE PO PRN (12:39)
[2022-01-30] MEDS ORDERED: MAGNESIUM HYDROX 2400MG/30ML ORAL SUSPENSION 30 ML CUP PO PRN (12:39)
[2022-01-30] MEDS ORDERED: MAG HYDROX/AL HYDROX/SIMETH 30 ML UNIT-DOSE CUP PO PRN (12:39)
[2022-01-30] MEDS ORDERED: NALOXONE HCL (KLOXXADO) 8 MG SPRAY NS PRN (12:39)
[2022-01-30] MEDS ORDERED: IBUPROFEN 600 MG TABLET (FP) PO PRN (12:39)
[2022-01-30] MEDS ORDERED: BISMUTH SUBSALICYLATE 524 MG/30 ML PO PRN (12:39)
[2022-01-30] MEDS ORDERED: methaDONE HCL 10 MG TABLET (FOR DETOX USE ONLY) PO ONE (13:15)
[2022-01-30] MEDS ORDERED: methaDONE HCL 10 MG TABLET (FOR DETOX USE ONLY) ONE (13:32)
[2022-01-30] MEDS: NICOTINE 10 MG CARTRIDGE (INHALER) IH PRN (14:45)
[2022-01-30 15:55] LABS: HEMATOCRIT 34.3 % (35.4-49); HEMOGLOBIN 11.9 GM/dL (11.7-16.9); MCH 29.1 pg (25.7-33.7); MCHC 34.7 g/dl (32.0-35.9); MEAN CELL VOLUME 83.7 fl (80-96); MEAN PLT VOLUME 7.6 fl (7.5-11.1); PLATELET COUNT 289 10^3/uL (134-434); RDW 13.2 % (11.9-15.9); WHITE BLOOD COUNT 7.8 K/mm3 (4.0-10.0)
[2022-01-30 16:32] LABS: BLOOD UREA NITROGEN 15.4 mg/dL (7-18)
[2022-01-30 16:33] LABS: CALCIUM 9.1 mg/dL (8.5-10.1)
[2022-01-30 16:34] LABS: ALBUMIN 3.9 g/dl (3.4-5.0)
[2022-01-30 16:36] LABS: BILIRUBIN,TOTAL 0.4 mg/dL (0.2-1); TOT PROT 7.7 g/dl (6.4-8.2)
[2022-01-30] MEDS: hydrOXYzine PAMOATE 25 MG CAPSULE (FP) PO PRN (17:44)
[2022-01-30] MEDS: cloNIDine HCL 0.1 MG TABLET PO PRN (17:44)
[2022-01-30] MEDS: METHOCARBAMOL 500 MG TABLET PO PRN (19:49)
[2022-01-30] MEDS: MELATONIN 5 MG TABLETS PO SCH (22:12)
[2022-01-30] MEDS: THIAMINE HCL 100 MG TABLET (FP) PO SCH (22:12)
[2022-01-31] MEDS: NICOTINE 14 MG/24 HOURS TOPICAL PATCH TD SCH (10:08)
[2022-01-31] MEDS: PRENATAL VITAMINS W/ FOLIC ACID TABLET (FP) PO SCH (10:08)
[2022-01-31] MEDS: NICOTINE 10 MG CARTRIDGE (INHALER) IH PRN ×2 (10:22→22:20)
[2022-01-31] MEDS: hydrOXYzine PAMOATE 25 MG CAPSULE (FP) PO PRN ×2 (10:45→18:20)
[2022-01-31] MEDS: METHOCARBAMOL 500 MG TABLET PO PRN ×2 (10:45→18:20)
[2022-01-31] MEDS: cloNIDine HCL 0.1 MG TABLET PO PRN ×2 (14:33→22:19)
[2022-01-31] MEDS: MELATONIN 5 MG TABLETS PO SCH (22:18)
[2022-01-31] MEDS: THIAMINE HCL 100 MG TABLET (FP) PO SCH (22:18)
[2022-02-01] MEDS: METHOCARBAMOL 500 MG TABLET PO PRN ×2 (05:33→23:52)
[2022-02-01] MEDS: cloNIDine HCL 0.1 MG TABLET PO PRN ×2 (05:33→23:52)
[2022-02-01] MEDS: hydrOXYzine PAMOATE 25 MG CAPSULE (FP) PO PRN ×2 (05:33→17:16)
[2022-02-01] MEDS ORDERED: methaDONE HCL 10 MG TABLET (FOR DETOX USE ONLY) PO ONE (10:00)
[2022-02-01] MEDS: PRENATAL VITAMINS W/ FOLIC ACID TABLET (FP) PO SCH (10:04)
[2022-02-01] MEDS: NICOTINE 14 MG/24 HOURS TOPICAL PATCH TD SCH (10:04)
[2022-02-01] MEDS: THIAMINE HCL 100 MG TABLET (FP) PO SCH (22:16)
[2022-02-01] MEDS: MELATONIN 5 MG TABLETS PO SCH (22:16)
[2022-02-02] MEDS: NICOTINE 14 MG/24 HOURS TOPICAL PATCH TD SCH (09:36)
[2022-02-02] MEDS: PRENATAL VITAMINS W/ FOLIC ACID TABLET (FP) PO SCH (09:36)
[2022-02-02] MEDS: NICOTINE 10 MG CARTRIDGE (INHALER) IH PRN ×2 (09:36→18:07)
[2022-02-02] MEDS: hydrOXYzine PAMOATE 25 MG CAPSULE (FP) PO PRN ×3 (13:35→22:50)
[2022-02-02] MEDS: METHOCARBAMOL 500 MG TABLET PO PRN (18:06)
[2022-02-02] MEDS: MELATONIN 5 MG TABLETS PO SCH (22:50)
[2022-02-02] MEDS: THIAMINE HCL 100 MG TABLET (FP) PO SCH (22:50)
[2022-02-03] MEDS: METHOCARBAMOL 500 MG TABLET PO PRN ×2 (09:52→17:10)
[2022-02-03] MEDS: PRENATAL VITAMINS W/ FOLIC ACID TABLET (FP) PO SCH (09:53)
[2022-02-03] MEDS: NICOTINE 14 MG/24 HOURS TOPICAL PATCH TD SCH (09:53)
[2022-02-03] MEDS ORDERED: methaDONE HCL 10 MG TABLET (FOR DETOX USE ONLY) PO ONE (10:00)
[2022-02-03] MEDS: NICOTINE 10 MG CARTRIDGE (INHALER) IH PRN (14:37)
[2022-02-03] MEDS: hydrOXYzine PAMOATE 25 MG CAPSULE (FP) PO PRN (17:10)
[2022-02-03] MEDS: MELATONIN 5 MG TABLETS PO SCH (22:38)
[2022-02-03] MEDS: THIAMINE HCL 100 MG TABLET (FP) PO SCH (22:38)
[2022-02-04] MEDS: hydrOXYzine PAMOATE 25 MG CAPSULE (FP) PO PRN (07:49)
[2022-02-04] MEDS: NICOTINE 14 MG/24 HOURS TOPICAL PATCH TD SCH (09:39)
[2022-02-04] MEDS: PRENATAL VITAMINS W/ FOLIC ACID TABLET (FP) PO SCH (09:39)
[2022-02-04 09:46] VITALS: BP 111/53; PULSE 80; RESP 20; TEMP 98.2
== END 2022-02-04 09:48 | disposition home or self-care (01) | DRG 773 ==
LOC: YASAS 10:41 → Y3N 13:26
PROVIDERS: ADMIT Allergy & Immunology; ATTEND Surgery
PROC: HZ2ZZZZ Detoxification Services for Substance Abuse Treatment (ICD-10-PCS; principal; 2022-01-30)
DX: F11.23 Opioid dependence with withdrawal (principal); F14.20 Cocaine dependence, uncomplicated; F13.20 Sedative, hypnotic or anxiolytic dependence, uncomplicated; F17.210 Nicotine dependence, cigarettes, uncomplicated
CPT/HCPCS: 36415; 80053; 85027; 86780; C9803-CS; Q0162; U0003; U0005